=== PATIENT | female | born 1975 | race Caucasian/White ===

== ENCOUNTER → 2019-04-15 | Outpatient (CLI) | payer MEDICARE, OTHER ==
[~2019-04-15] MED LIST: ASPIRIN EC81 M1 PO; AUGMENTIN 500-1 EACH PO; AUGMENTIN 875875 MG PO; CALCIUM 600 +1 EAC1 PO; CATAPRES0.2 MG PO; CLONIDINE HCL0.3 M3 PO; CLONIDINE0.1; COUMADIN 10MG T10 M1 PO; COUMADIN 1MG TAB1 M1 PO; ENOXAPARIN40 MG/0.1 SUBQ; FISH OIL 1,001000 M2; FISH OIL 1,001000 M2 PO; HYDROCODONE-AP1 EAC6 PO; HYZAAR 100-251 EACH PO; IRON325 PO; LASIX 40 MG TAB40 M2 PO; LIPITOR20 MG PO; LIPITOR80 MG PO; MACROBID 100 M100 M1 PO; MINOCIN100 MG PO; NEPHROCAPS SOFT1 CAP PO; NORCO 5-325 TA1 EACH PO; PROTONIX40 M1 PO; RENVELA800 MG PO; SERTRALINE HCL50 MG PO; VITAMIN D1000 UNI1 PO; ZOFRAN ODT4 MG PO
== END ==
LOC: M.ULTRA 13:00
DX: M79.89 Other specified soft tissue disorders (principal)

== ENCOUNTER 2019-07-11 12:01 | Inpatient (IN) | payer MEDICARE, OTHER ==
[~2019-07-11] VITALS: Ht 172.7 cm; Wt 144.4 kg
--- NOTE | ~2019-07-11 | PROC ---
[facility] [address] [place] [address] PROCEDURE REPORT Name: ALEJANDRO MORRIS Room: [address] IN ..#: [id number] Admission: 07/11/19 Attend Phys: El Alan MD Discharge: 07/16/19 Date of : 73 Report #: [id number] THIS REPORT FOR: //name// For GI report, please see the Provation report in Perceptive 7 content. By: 1455Medical Records Staff MARIN /CHERELLE
[~2019-07-11 12:01] MED LIST changes: -FISH OIL 1,001000 M2
[2019-07-11 12:13] VITALS: BP 123/88
[2019-07-11] MEDS ORDERED: BUPROPION XL300 MG PO (12:16)
[2019-07-11] MEDS ORDERED: COLACE100 MG PO (12:16)
[2019-07-11] MEDS ORDERED: COZAAR 25 MG TA25 M2 PO (12:17)
[2019-07-11] MEDS ORDERED: PROCARDIA XL90 MG PO (12:17)
[2019-07-11] MEDS ORDERED: KRISTALOSE20 GM PO (12:17)
[2019-07-11 12:35] LABS: ABSOLUTE EOSINOPHILS 0.2 thou/uL (0.0-0.7); ABSOLUTE LYMPHOCYTES 0.9 thou/uL (0.8-5.3); ABSOLUTE MONOCYTES 0.7 thou/uL (0.0-1.2); ABSOLUTE NEUTROPHILS 9.5 thou/uL (1.6-8.1); BASOPHILS 0.3 %; EOSINOPHILS 2.1 %; HEMATOCRIT 35.8 % (37.0-47.0); HEMOGLOBIN 11.9 gm/dL (12.0-15.0); LYMPHOCYTES 8.1 %; MCHC 33.3 g/dL (28.0-37.0); MCV 99.1 fL (80.0-100.0); MONOCYTES 5.9 %; MPV 9.5 fl. (7.2-11.1); NUCLEATED RBCS 0 /100WBC; PLATELET COUNT* 256 thou/uL (150-400); POLYS 83.6 %; RBC 3.61 mil/uL (4.20-5.00); RDW-CV 15.9 % (10.5-14.5); WBC 11.4 thou/uL (4.0-11.0)
[2019-07-11 12:43] LABS: CALCIUM 9.2 mg/dL (8.5-10.1); CREATININE 10.6 mg/dL (0.6-1.3)
[2019-07-11 12:51] LABS: ALBUMIN 2.9 g/dL (3.4-5.0); TOTAL BILIRUBIN 0.3 mg/dL (<0.1-1.0); TOTAL PROTEIN 7.9 g/dL (6.4-8.2)
[2019-07-11 12:59] LABS: POTASSIUM 2.9 mmol/L (3.5-5.1)
[2019-07-11 13:13] LABS: PROTIME > 210.1 Seconds (9.20-11.50)
[2019-07-11 13:15] LABS: INR > 18.0
[2019-07-11 15:15] VITALS: BP 128/90
--- NOTE | 2019-07-11 15:45 | NUR ---
PATIENT TO UNIT VIA GURNEY AND ED STAFF. BEDSIDE REPORT GIVEN. A&OX4, ABLE TO EXPRESS NEEDS TO STAFF. FINANCIAL SERVICES OFFICER IN PLACE, SR BBB. O2 SATS >92%, VS WNL. ORIENTED PATIENT TO ROOM. UP AD CASEY TO BATHROOM WITH STEADY GAIT. CALL LIGHT WITHIN REACH.
[2019-07-11 15:57] VITALS: BP 121/73
--- NOTE | 2019-07-11 18:44 | NUR ---
DIE CAST TECHNICIAN HERE TO SET UP PERITONEAL DIALYSIS. REPORT GIVEN. PATIENT AWARE THAT DIE CAST TECHNICIAN TO ASSESS & SET-UP IN ROOM DIALYSIS. PATIENT'S BROUGHT THUMB DRIVE TO COLLECT DATA FROM DIALYSIS SESSION.
[2019-07-11 18:52] LABS: PROTIME > 210.1 Seconds (9.20-11.50)
[2019-07-11 18:53] LABS: INR > 18.0
[2019-07-11 19:35] VITALS: BP 122/76
[2019-07-12 00:44] VITALS: BP 136/86
--- NOTE | 2019-07-12 03:42 | NUR ---
ASSUMED CARE OF PT AT 1900. PT IS ALERT AND ORIENTED. VSS. PERRLA. NO COMPLAINTS OF PAIN. PT IS DOING PERITONEAL DIALYSIS. PT IS IN SINUS RYTHM ON THE TELEMETRY. PT IS SLEEPING QUIETLY IN BED. RESPIRATIONS ARE EVEN AND NONLABORED. WILL CONTINUE TO MONITOR PT.
[2019-07-12 03:56] VITALS: BP 135/75
[2019-07-12 04:28] LABS: ABSOLUTE BASOPHILS 0.1 thou/uL (0.0-0.2); ABSOLUTE EOSINOPHILS 0.3 thou/uL (0.0-0.7); ABSOLUTE LYMPHOCYTES 1.4 thou/uL (0.8-5.3); ABSOLUTE MONOCYTES 0.6 thou/uL (0.0-1.2); BASOPHILS 0.6 %; EOSINOPHILS 3.4 %; HEMATOCRIT 32.8 % (37.0-47.0); HEMOGLOBIN 10.8 gm/dL (12.0-15.0); MCH 32.9 pg (26.0-34.0); MCV 99.8 fL (80.0-100.0); MONOCYTES 6.3 %; MPV 9.6 fl. (7.2-11.1); NUCLEATED RBCS 0 /100WBC; PLATELET COUNT* 238 thou/uL (150-400); POLYS 74.7 %; RBC 3.28 mil/uL (4.20-5.00); RDW-CV 15.9 % (10.5-14.5); WBC 9.4 thou/uL (4.0-11.0)
[2019-07-12 04:39] LABS: CALCIUM 8.4 mg/dL (8.5-10.1); CREATININE 10.3 mg/dL (0.6-1.3)
[2019-07-12 04:42] LABS: PROTIME 143.4 Seconds (9.20-11.50)
[2019-07-12 05:12] LABS: INR 15.5
[2019-07-12 08:01] VITALS: BP 122/78
--- NOTE | 2019-07-12 09:12 | NUR ---
ASSUMED CARE OF PT THIS AM AROUND 0715- CULTURE MEDIA LABORATORY ASSISTANT IN PLACE ORDERED, TRACING SR- UPON ASSESSMENT PT NOTED TO BE RESTING IN BED, WATCHING TV- PT A&O X4- CONTINENT OF BOWEL AND BLADDER- UP AD-CASEY IN ROOM, STEADY GAIT NOTED- LCTA, RESP EVEN AND UNLABORED- VSS, O2 SAT 98% ON RA- ABD SOFT/ROUND/NON-TENDER, BS X4 QUADS- LAST BM REPORTED 07/11/19- PT REPORTED TO HAVE COMPLETED PERITONEAL DIALYSIS ON PRIOR SHIFT ORDERED- IV NOTED TO LEFT FA INTACT ANS SL- HERE TO ASSESS THIS AM WITH ORDERED FOR 40MEQ K+ X1, ADN GIVEN THIS AM PRESCRIBED- PT REPORTS DIARRHEA ON PRIOR SHIFT HAS SUBSIDED AT THIS TIME-RUE NOTED WITH OLD FISTULA, NO BRUIT/THRILL NOTED- GOOD PO INTAKE NOTED THIS AM WITH BREAKFAST- DENIES ANY C/O PAIN/DISCOMFORT AT THIS TIME- MAKES NEEDS KNOWN- ALL NEEDS MET AT THIS TIME-WCTM
[2019-07-12 12:12] VITALS: BP 108/55
[2019-07-12 12:45] LABS: PROTIME 69.1 Seconds (9.20-11.50)
[2019-07-12 12:49] LABS: INR 7.2
[2019-07-12 14:04] LABS: CALCIUM 9.1 mg/dL (8.5-10.1); CREATININE 10.9 mg/dL (0.6-1.3); MAGNESIUM 1.9 mg/dL (1.8-2.4)
--- NOTE | 2019-07-12 14:23 | EKG ---
[place] [address] ELECTROCARDIOGRAM REPORT Name: ALEJANDRO MORRIS Room: [address] ADM IN [facility].#: [id number] Admission: 07/11/19 Attend Phys: El Alan MD Discharge: Date of : 73 Report #: [id number] THIS REPORT FOR: //name// [facility] ED Test Date: 2019-07-11 Test Time: 13:19:20 Pat Name: ALEJANDRO MORRIS Department: Room: [facility] Gender: F Livestock Sales Representative: EDD : 1975 Requested By: Breonna Vázquez Order Number: [id number] MD: Aj Olivas Measurements Intervals [place] Rate: 89 P: 59 OH: 222 QRS: 77 QRSD: 119 T: -54 QT: 393 QTc: 479 Interpretive Statements Sinus rhythm Prolonged OH interval Consider left atrial enlargement Nonspecific intraventricular conduction delay Nonspecific T abnormalities, diffuse leads Baseline wander in lead(s) I,II,aVR,aVL,V5 Compared to ECG 04/07/2017 07:43:36 Intraventricular conduction delay now present T-wave abnormality now present Electronically Signed On 07-12-2019 14:23:16 CDT by Aj Olivas [email or web address] <ELECTRONICALLY SIGNED> By: Lakesha Olivas MD, FACC 07/12/19 1423 18 1319 Lakesha Olivas MD, [facility] /EPI
--- NOTE | 2019-07-12 16:01 | NUR ---
PT CURRENTLY RESTING IN BED, AT SIDE VISITING- AUTOMOTIVE METALSMITH IN PLACE ORDERED, TRACING SR- IV TO LEFT FA INTACT AND SL- INR NOTED TO BE DOWN TO 7.2 THIS SHIFT, INR CHECKS Q [address]- ONE TIME K+ ORDER 40MEQ ORDERD THIS AM AND GIVEN PRESCRIBED- K+ CONTINUES TO BE 3.0- GOOD PO INTAKE NOTED THIS SHIFT WITH MEALS- PT MAKES NEEDS KNOWN- ALL NEEDS MET AT THIS TIME-WCTM
[2019-07-12 16:33] VITALS: BP 110/60
[2019-07-12 19:25] VITALS: BP 126/77
[2019-07-12 20:52] LABS: PROTIME 36.6 Seconds (9.20-11.50)
[2019-07-12 20:53] LABS: INR 3.7
--- NOTE | 2019-07-12 23:43 | NUR ---
ASSUMED CARE OF PT AT 1900. PT IS ALERT AND ORIENTED. VSS. PERRLA. NO COMPLAINTS OF PAIN. STEADY GAIT. PT IS CURRENTLY ON PERITANEAL DIALYSIS. PT IS IN SINUS RYTHM ON THE TELEMETRY. PT IS RESTING COMFORTABLY IN BED. RESPIRATIONS ARE EVEN AND NONLABORED. WILL CONTINUE TO MONITOR PT.
[2019-07-13] VITALS: BP 146/80
[2019-07-13 05:21] LABS: PROTIME 21.8 Seconds (9.20-11.50)
[2019-07-13 05:22] LABS: INR 2.2
[2019-07-13 05:24] LABS: CREATININE 11.1 mg/dL (0.6-1.3); MAGNESIUM 1.8 mg/dL (1.8-2.4); POTASSIUM 3.2 mmol/L (3.5-5.1)
[2019-07-13 07:25] VITALS: BP 106/67
--- NOTE | 2019-07-13 08:14 | CON ---
[address] [address] CONSULTATION Name: ALEJANDRO MORRIS Room: [address] IN [facility].#: [id number] Admission: 07/11/19 Attend Phys: El Alan MD Discharge: Date of : 73 Report #: [id number] THIS REPORT FOR: //name// CC: [facility] HISTORY: The patient is a 44-year-old female patient with a history of antiphospholipid syndrome, end-stage renal disease, on peritoneal dialysis under the care of Dr. Watters. She was admitted yesterday with significant coagulopathy and INR of 18. She reports having stomach flu with her diarrhea, nausea, and poor intake over the past many days. She was also found to be hypokalemic, which has been supplemented. She still reports having diarrhea overnight, though nothing significant has been started by the nursing staff. Apparently, the patient has not been talking to the nursing staff about those overnight. No fevers, no chills. Nausea is better. No abdominal pain. She did have peritoneal dialysis overnight and did fairly well. PAST MEDICAL HISTORY: 1. End-stage renal disease, on peritoneal dialysis. 2. History of fistula. 3. Antiphospholipid syndrome. 4. Longstanding history of hypokalemia. 5. On anticoagulants, admitted with hypercoagulable state. 6. Paresthesias. 7. History of thrombocytopenia. 8. Hypertension. 9. History of UTIs. HOME MEDICATIONS: Aspirin, Lipitor, sevelamer, warfarin, bupropion, docusate, lactulose for constipation, losartan, nifedipine, clonidine, furosemide, cholecalciferol, sertraline and fish oil. PERSONAL, SOCIAL, AND FAMILY HISTORY: Reviewed. No smoking reported presently. Occasional alcohol intake. No family history of ESRD. REVIEW OF SYSTEMS: No fevers, no chills, no chest pain. Diarrhea as mentioned above. Nausea occasionally. No fevers, no abdominal pain, no visible blood loss from any source. PHYSICAL EXAMINATION: VITAL SIGNS: She appears comfortable. Blood pressure 122/78, pulse rate of 80, temperature of 36.8. LUNGS: Diminished, but clear. GENERAL: She is awake. She is alert, answers all questions appropriately. HEART: Regular S1, S2. ABDOMEN: Obese but soft, nontender. PD catheter [place] [address] CONSULTATION Name: ALEJANDRO MORRIS Bo Room: [address]#: [id number] Admission: 07/11/19 Attend Phys: El Alan MD Discharge: Date of : 73 Report #: [id number] No significant edema in lower extremities. NEUROLOGIC: Grossly stable. LABORATORY DATA: Reviewed. White count is 9.4, hemoglobin is 10.8. Sodium 137, potassium is 3, chloride 97, bicarbonate is 25, BUN 15 and creatinine 10.3, calcium 8.4, albumin 2.9. INR this morning is 15.5. ASSESSMENT: 1. End-stage renal disease. 2. On peritoneal dialysis. 3. Supratherapeutic INR. 4. Antiphospholipid syndrome. 5. History of hypertension. 6. Obesity. 7. Anemia. 8. Hypokalemia on this admission. PLAN: 1. Supratherapeutic INR being addressed by the primary team. The patient is getting vitamin K, warfarin on hold. 2. End-stage renal disease. The patient did get her PD treatment last night. She uses 13 liters of 2.5% bags on a regular basis. 3. Hypokalemia. Give 40 more mEq of potassium chloride this morning. Repeat labs this afternoon. 4. Please check magnesium levels also. 5. Ongoing electrolyte losses from diarrhea. Send stool studies for C. diff and other enteric pathogens. 6. Anemia. Follow labs closely. No indications for Mircera or Epogen yet. 7. Supratherapeutic INR. Management per primary team. Thank you for the consultation. <ELECTRONICALLY SIGNED> By: Yasmeen Link MD 07/13/19 0814 0808 [id number] Link MD /nt
--- NOTE | 2019-07-13 08:33 | NUR ---
ASSUMED CARE OF PT THIS AM AROUND 07- CIRCULATOR IN PLACE ORDERED, TRACING SR WITH 1ST DEGREE- UPON ASSESSMENT PT NOTED TO BE RESTING IN BED, EYES CLOSED, AT SIDE- PT A&O X4- CONTINENT OF BOWEL AND BLADDER- UP AD-CASEY IN ROOM, STEADY GAIT NOTED- LCTA, RESP EVEN AND UN-LABORED- VSS, O2 SAT 93% ON RA- ABD SOFT/ROUND/NON-TENDER, BS X4 QUADS- BM REPORTED ON PRIOR SHIFT- IV NOTED TO LEFT FA INTACT AND SL- PERITONEAL DIALYSIS COMPLETED THIS AM INDICATED, PT SELF DISCONNECTED- K+ NOTED AT 3.2 WITH ORDERS NOTED THIS AM TO REPLACE X2 40 MEQ- PT DENIES ANY C/O PAIN/DISCOMFORT AT THIS TIME- CALL LIGHT AND PERSONAL BELONGINGS WITH IN REACH- PT MAKES NEEDS KNOWN- ALL NEEDS MET AT THIS TIME-WCTM
--- NOTE | 2019-07-13 09:10 | CON ---
[address] [address] CONSULTATION Name: ALEJANDRO MORRIS Room: [address] IN ..#: [id number] Admission: 07/11/19 Attend Phys: El Alan MD Discharge: Date of : 73 Report #: [id number] THIS REPORT FOR: //name// CC: El Gay DATE OF SERVICE: 07/12/2019 REASON FOR CONSULTATION: Supratherapeutic INR. HISTORY OF PRESENT ILLNESS: A 44-year-old female who has been chronically on anticoagulation with Coumadin per her records due to antiphospholipid syndrome. The patient stated that her INR usually runs between 2.5 and 3. In the last week, she reported symptoms suggestive of gastroenteritis with nausea, vomiting, and diarrhea. She had a significantly decreased appetite. She was seen at her primary care physician's office and INR was not recordable. She denies any headaches, blurry vision, focal numbness, or tingling sensation. She denies any epistaxis or gum bleed. She denies any hematuria or black stool. REVIEW OF SYSTEMS: All systems reviewed. It was negative except the above. PAST MEDICAL HISTORY: Per the records, antiphospholipid antibody syndrome; end-stage renal disease, on dialysis; dyslipidemia; hypertension; prior CVA. PAST SURGICAL HISTORY: Fistula placement, hysterectomy, and left wrist surgery. MEDICATIONS: Per admission list. SOCIAL HISTORY: She drinks alcohol occasionally. Never smoker. No drug abuse. ALLERGIES: No known allergies. PHYSICAL EXAMINATION: VITAL SIGNS: Today, temperature 36.8, pulse 83, respirations 18, blood pressure is 108/55, and SpO2 was 97% on room air. GENERAL: The patient was lying in bed. She was not in acute distress. LUNGS: Clear to auscultations bilaterally. HEART: Regular rate and rhythm. S1, S2 within normal limits. ABDOMEN: Soft, nontender, nondistended, bowel sounds positive. No evidence of bruises or ecchymosis. LABORATORY DATA: Today, WBC is 9.4, hemoglobin 10.8, platelets 238. PT dropped to 143 after 10 mg of vitamin K. INR was 15.5, repeated one [place] [address] CONSULTATION Name: ALEJANDRO MORRIS Room: [address]#: [id number] Admission: 07/11/19 Attend Phys: El Alan MD Discharge: Date of : 73 Report #: [id number] ASSESSMENT AND PLAN: A 44-year-old female who has been evaluated because of coagulopathy with a supratherapeutic INR. At this point, the patient does not have any active bleeding. She was given vitamin K 10 mg. Her INR has been trending down. We will repeat a stat INR every 8 hours to decide whether the patient is going to need further FFP or PCC. The patient does not have any symptoms or signs suggestive of active bleeding. <ELECTRONICALLY SIGNED> By: Timoteo Calixto MD 07/13/19 0910 1227 [id number] Calixto MD /nt
[2019-07-13 09:15] VITALS: BP 106/67
[2019-07-13 10:38] LABS: ABSOLUTE EOSINOPHILS 0.3 thou/uL (0.0-0.7); ABSOLUTE MONOCYTES 0.6 thou/uL (0.0-1.2); ABSOLUTE NEUTROPHILS 7.1 thou/uL (1.6-8.1); BASOPHILS 0.5 %; EOSINOPHILS 3.2 %; HEMATOCRIT 32.3 % (37.0-47.0); HEMOGLOBIN 10.7 gm/dL (12.0-15.0); LYMPHOCYTES 11.4 %; MCH 33.4 pg (26.0-34.0); MCHC 33.3 g/dL (28.0-37.0); MCV 100.4 fL (80.0-100.0); MONOCYTES 6.4 %; MPV 9.9 fl. (7.2-11.1); NUCLEATED RBCS 0 /100WBC; PLATELET COUNT* 226 thou/uL (150-400); POLYS 78.5 %; RBC 3.22 mil/uL (4.20-5.00); RDW-CV 16.1 % (10.5-14.5)
[2019-07-13 12:52] VITALS: BP 119/70
[2019-07-13 12:53] LABS: INR 1.9; PROTIME 18.9 Seconds (9.20-11.50)
--- NOTE | 2019-07-13 17:02 | NUR ---
PT CURRENTLY RESTING IN BED, AT SIDE- PROGRAM CLINICIAN IN PLACE ORDERED, TRACING SR WITH 1ST DEGREE- IV TO LEFT FA INTACT AND SL- D/C PLACED ON HOLD R/T SIGNIFICANT DARK AND BRIGHT RIGHT BLOOD NOTED IN [facility] EARLY AFTERNOON- NOTIFIED WITH ORDERS OBTAINED FOR GI CONSULT, HH, HOLD COUMADIN, OCCULT BLOOD, NPO- GI HERE TO ASSESS WITH PLANS FOR COLON/EGD ON SUNDAY WITH PLANNED 2 DAY PREP-ORDERED SENNA GIVEN THIS SHIFT-K+ REPLACED X2 40MEQ ORDERED THIS SHIFT- OCCULT STOOL COLLECTED AND NOTED TO BE POSITIVE-CALL LIGHT AND PERSONAL BELONGINGS WITH IN REACH- PT MAKES NEEDS KNOWN- ALL NEEDS MET AT THIS TIME-WCTM
[2019-07-13 17:42] VITALS: BP 123/78
[2019-07-13 20:55] VITALS: BP 145/80
[2019-07-14] VITALS: BP 110/64
[2019-07-14 04:00] VITALS: BP 112/68
[2019-07-14 04:34] LABS: ABSOLUTE BASOPHILS 0.1 thou/uL (0.0-0.2); ABSOLUTE EOSINOPHILS 0.3 thou/uL (0.0-0.7); ABSOLUTE LYMPHOCYTES 1.4 thou/uL (0.8-5.3); ABSOLUTE MONOCYTES 0.6 thou/uL (0.0-1.2); ABSOLUTE NEUTROPHILS 5.4 thou/uL (1.6-8.1); BASOPHILS 0.8 %; EOSINOPHILS 3.7 %; HEMATOCRIT 31.9 % (37.0-47.0); HEMOGLOBIN 10.5 gm/dL (12.0-15.0); LYMPHOCYTES 18.1 %; MCH 32.5 pg (26.0-34.0); MCHC 32.7 g/dL (28.0-37.0); MCV 99.4 fL (80.0-100.0); MONOCYTES 8.2 %; MPV 9.2 fl. (7.2-11.1); NUCLEATED RBCS 0 /100WBC; PLATELET COUNT* 192 thou/uL (150-400); POLYS 69.2 %; RBC 3.21 mil/uL (4.20-5.00); RDW-CV 15.7 % (10.5-14.5); WBC 7.8 thou/uL (4.0-11.0)
[2019-07-14 04:44] LABS: CALCIUM 8.9 mg/dL (8.5-10.1); CREATININE 10.7 mg/dL (0.6-1.3); POTASSIUM 3.2 mmol/L (3.5-5.1)
[2019-07-14 04:46] LABS: INR 1.6
--- NOTE | 2019-07-14 06:45 | NUR ---
PT IS ABLE TO COMMUNICATE HER NEEDS TO STAFF EFFECTIVELY. SHE HAS DENIED THE NEED FOR PAIN MEDICATION UP TO THIS TIME. SHE HAS BEEN ON BOWEL PREP FOR A DAY AND WILL BE CONTINUING IT TODAY; EGD/COLONOSCOPY TENTATIVELY SCHEDULED FOR SUNDAY WITH GI. PERITONEAL DIALYSIS APPEARS PATENT; PT KNOWS HOW TO MANAGE PROPERLY.
[2019-07-14 08:30] VITALS: BP 147/82
[2019-07-14 08:38] LABS: INR 1.6
[2019-07-14 11:30] VITALS: BP 125/69
--- NOTE | 2019-07-14 12:16 | NUR ---
Pt sound asleep when CM went to assess, will f/u later
--- NOTE | 2019-07-14 13:54 | NUR ---
Nutrition: Pt admitted with melena, hematochezia. On bowel prep for colonoscopy tomorrow. ESRD on PD, HTN, CVA. BG 154, albumin 2.9. Wt stable. Will follow after scope results, 07/16/19.
--- NOTE | 2019-07-14 15:16 | NUR ---
Pt is A&O. Resides at home with her . Independent. Pt sleeps with a cpap, no other DME. Hx of in 2011, but does not recall the name of the agency. Hx of SNF in [place], [place]. Pt does peritoneal dialysis at home. Goal is home at [place], no needs anticipated. Following.
[2019-07-14 16:17] VITALS: BP 120/88
--- NOTE | 2019-07-14 16:26 | NUR ---
PATIENT UP AD CASEY, TRACING SR WITH PVC'S ON SUPPLIER QUALITY MANAGER. NO COMPLAINTS OF PAIN. IV REMAINS SL. PATIENT TACHY FROM 100'S-140'S THIS AFTERNOON AFTER PREP STARTED AND AMBULATING TO BATHROOM, DR. AUGUST WAS MADE AWARE AND NO NEW ORDERS RECEIVED. GOLYTLEY AND DUCOLAX GIVEN ORDERED. PATIENT REMAINS ON CLEAR LIQUID DIET.
[2019-07-14 20:15] VITALS: BP 127/88
--- NOTE | 2019-07-14 23:15 | NUR ---
PT LOST IV ACCESS WHILE ON DAY SHIFT...DAMAGE ASSESSOR ATTEMPTED TO PLACE A NEW IV THIS EVENING WITHOUT SUCCESS. CASTING MOLDER WILL ATTEMPT TO GET ACCESS, IF THEY HAVE TIME. PT HAS EGD/COLONOSCOPY TOMORROW AND WILL NEED AN IV FOR THAT PROCEDURE.
[2019-07-15 00:48] VITALS: BP 104/58
[2019-07-15 04:00] VITALS: BP 109/59
--- NOTE | 2019-07-15 05:06 | NUR ---
PT IS ABLE TO COMMUNICATE HER NEEDS TO STAFF EFFECTIVELY. CURRENT PAIN MEDICATION REGIMEN HAS BEEN ADEQUATE FOR CONTROLLING HER PAIN UP TO THIS TIME. SHE HAS BEEN ON A 2-DAY BOWEL PREP AND IS TENTATIVELY SCHEDULED TO HAVE A EGD/COLONOSCOPY LATER THIS MORNING; SHE CONTINUES TO HAVE BLOOD IN HER STOOL. PT HAS CONTINUED TO SUCCESSFULLY MANAGE HER PERITONEAL DIALYSIS. SHE HAS BEEN NPO SINCE MIDNIGHT EXCEPT FOR A FEW DRINKS OF BOWEL PREP FLUID AND SOME PILLS.
[2019-07-15 05:09] LABS: ABSOLUTE EOSINOPHILS 0.2 thou/uL (0.0-0.7); ABSOLUTE LYMPHOCYTES 1.3 thou/uL (0.8-5.3); ABSOLUTE MONOCYTES 0.7 thou/uL (0.0-1.2); ABSOLUTE NEUTROPHILS 6.5 thou/uL (1.6-8.1); BASOPHILS 0.5 %; EOSINOPHILS 2.6 %; HEMATOCRIT 27.7 % (37.0-47.0); HEMOGLOBIN 9.4 gm/dL (12.0-15.0); LYMPHOCYTES 14.5 %; MCH 33.7 pg (26.0-34.0); MCHC 33.9 g/dL (28.0-37.0); MCV 99.3 fL (80.0-100.0); MONOCYTES 7.9 %; MPV 9.2 fl. (7.2-11.1); NUCLEATED RBCS 0 /100WBC; PLATELET COUNT* 138 thou/uL (150-400); POLYS 74.5 %; RBC 2.79 mil/uL (4.20-5.00); RDW-CV 15.5 % (10.5-14.5); WBC 8.7 thou/uL (4.0-11.0)
[2019-07-15 05:11] LABS: INR 1.5; PROTIME 15.1 Seconds (9.20-11.50)
[2019-07-15 05:22] LABS: ALBUMIN 2.2 g/dL (3.4-5.0); CALCIUM 8.5 mg/dL (8.5-10.1); CREATININE 10.2 mg/dL (0.6-1.3); POTASSIUM 3.5 mmol/L (3.5-5.1); TOTAL BILIRUBIN 0.4 mg/dL (<0.1-1.0); TOTAL PROTEIN 6.2 g/dL (6.4-8.2)
[2019-07-15 06:29] LABS: ESR (SEDRATE) 132 mm/hr (0-20)
[2019-07-15 07:54] LABS: INR 1.5; PROTIME 15.1 Seconds (9.20-11.50)
[2019-07-15 08:00] VITALS: BP 105/72
--- NOTE | 2019-07-15 09:00 | NUR ---
PD TURNED OFF AND DRAINED. PT TO PRE-OP
--- NOTE | 2019-07-15 10:15 | CON ---
[address] [address] CONSULTATION Name: ALEXANDRAALEJANDRO Bo Room: [address] IN .R.#: [id number] Admission: 07/11/19 Attend Phys: El Alan MD Discharge: Date of : 73 Report #: [id number] THIS REPORT FOR: //name// CC: El Alan DATE OF SERVICE: 07/13/2019 REASON FOR CONSULTATION: Rectal bleeding. IMPRESSION: 1. Overt hematochezia with associated history of dark stools, suggestive of melena prior to that ? evaluate for upper and lower GI tract source for the same. 2. End-stage renal disease, requiring peritoneal dialysis (hemodialysis did not work due to recurrent clots within her AV fistula, with multiple surgeries for the same). 3. History of previous stroke with history of antiphospholipid syndrome, requiring chronic anticoagulation. 4. Chronic anemia with the patient getting iron infusions under the direction of Dr. Watters, with the last one being done in July of this year. 5. Chronic constipation, requiring chronic laxatives to help with the same. RECOMMENDATIONS: 1. Since the patient has both preexisting melena and now hematochezia, but needs to stay on anticoagulation for antiphospholipid syndrome, we will proceed with a 2-day bowel preparation so that I can proceed with both upper and lower endoscopy to be done on Sunday morning, 07/15. I do not think that she will be cleared out well enough within one day to have a prep due to her issues with constipation and I only want to do this once. 2. We will hold all the anticoagulants for now and hold off on any further vitamin K or fresh frozen plasma, unless she has any hemodynamically significant GI bleeding requiring transfusions. 3. I have discussed the plans with the patient as well as her and they are agreeable to the same. HISTORY OF PRESENT ILLNESS: The patient is a pleasant 44-year-old white female with a history of antiphospholipid syndrome, for which she is on chronic anticoagulation for the same secondary to previous strokes and blood clots, who was admitted to the hospital because her INR was above 18. I usually like her INR to be between 2.5 and 3. She had been having some problems with nausea, vomiting and diarrhea and just not feeling well. She denied any history of any black stools or tarry stools upon her admission, but when talking to her now, [place] [address] CONSULTATION Name: ALEJANDRO MORRIS Room: [address] IN [facility]#: [id number] Admission: 07/11/19 Attend Phys: El Alan MD Discharge: Date of : 73 Report #: [id number] she states she was having black stools prior to coming to the hospital. She denies any complaints of dysphagia, odynophagia or postprandial pain or any problems normally with her upper GI tract. She has no history of any ulcer problems or any other issues. She does have a tendency towards chronic constipation and has been told by Dr. Watters to make sure this does not get worse because of the fact that she has to undergo peritoneal dialysis. She tried hemodialysis, but her AV fistula kept clotting off and required multiple surgeries. She is fine with doing peritoneal dialysis and had been doing so for the last couple of years. She denies any family history of any colon polyps or colon cancer. She has never undergone previous studies of her upper or lower GI tract in the past. She was getting ready to be discharged and then started passing blood and blood clots. She now is taken to the hospital for further evaluation and treatment. ALLERGIES: None. MEDICATIONS AT HOME: Include aspirin, Lipitor, sevelamer, warfarin, bupropion, docusate, lactulose, losartan, nifedipine, clonidine, furosemide, vitamin D, sertraline and fish oil. PAST MEDICAL AND SURGICAL HISTORY: Remarkable for underlying hypertension, antiphospholipid syndrome with previous stroke and blood clotting, anxiety and depression. She has vitamin D deficiency as well. The etiology of her kidney disease is unclear as she was never able to safely undergo a biopsy for fear that she would have stroke being off anticoagulation. It was going to change her care and for this reason, she is just on dialysis. SOCIAL HISTORY: The patient does not smoke, drinks alcohol on a weekly basis. FAMILY HISTORY: Negative. PHYSICAL EXAMINATION: GENERAL: Revealed a 44-year-old white female who is awake and alert. CARDIOPULMONARY EXAMINATION: Revealed a regular rate and rhythm. LUNGS: Clear. ABDOMEN: Soft, not tender. No rebound or guarding noted. LABORATORY DATA: Her laboratory tests from 07/13 revealed a white count of 9.0, hemoglobin 10.7, platelet count 226,000, MCV is 100.4 and RDW 16.1. Differential is normal. Her sodium is 135, potassium 3.2, chloride 96, bicarbonate is 23, her BUN is 56, creatinine of 11.1 and her GFR is 4. Liver tests performed on 07/11 revealed a bilirubin of 0.3, alkaline phosphatase 100, AST 12 and ALT 18. Albumin is 2.9. The patient underwent a full CT scan of the abdomen and pelvis back in 03/2017, which I reviewed, which revealed dialysis catheter was present within the belly [facility] [address] [place] [address] CONSULTATION Name: ROMELAnnaALEJANDRO Bo Room: [address] IN [facility]#: [id number] Admission: 07/11/19 Attend Phys: El Alan MD Discharge: Date of : 73 Report #: [id number] cavity as well as some nonspecific patchy haziness in the omental fat, but nothing that was a small fat-containing periumbilical hernia. DISCUSSION: At the present time, the patient appears to be an adequate candidate to undergo endoscopic evaluation. We will proceed with 2-day bowel preparation and endoscopic evaluation of her upper and lower GI tract in 2 days' time. I have discussed the plans with the patient as well and she is agreeable to the same. ADDENDUM: I previously noted in my dictation that the patient has not undergone any previous studies of her upper and lower GI tract the past, but this is not true. She underwent both upper and lower endoscopy back in 11/[address] Faustino Collazo for evaluation of iron-deficiency anemia and at which time, she underwent both upper and lower endoscopy, which were unrevealing. Biopsies from the small bowel were negative for celiac disease. This was the last time she had any endoscopic studies. <ELECTRONICALLY SIGNED> By: Jessee Bennett DO 07/15/19 1015 1052 1327Jessee Bennett DO /jero
[2019-07-15 11:00] VITALS: BP 117/72
[2019-07-15 16:00] VITALS: BP 115/49
--- NOTE | 2019-07-15 18:07 | NUR ---
PT UP IN ROOM THROUGHTOUT SHIFT. EGD/COLONSCOPY THIS AM. TOLERATING PO WELL. NO SIGNS OF BLEEDING. NSR ON MONITOR
[2019-07-15 20:00] VITALS: BP 96/55
[2019-07-16] VITALS: BP 104/59
[2019-07-16 04:00] VITALS: BP 125/65
[2019-07-16 05:30] LABS: INR 1.4; PROTIME 14.4 Seconds (9.20-11.50)
--- NOTE | 2019-07-16 06:18 | NUR ---
pt has rested comfortably t/o night without c/o pain,nausea or bleeding. pt progressing towards goals. meds administered via emar.call light within reach
[2019-07-16 08:00] VITALS: BP 152/92
[2019-07-16 09:25] LABS: ABSOLUTE BASOPHILS 0.1 thou/uL (0.0-0.2); ABSOLUTE EOSINOPHILS 0.3 thou/uL (0.0-0.7); ABSOLUTE LYMPHOCYTES 1.1 thou/uL (0.8-5.3); ABSOLUTE MONOCYTES 0.7 thou/uL (0.0-1.2); ABSOLUTE NEUTROPHILS 5.8 thou/uL (1.6-8.1); BASOPHILS 1.2 %; EOSINOPHILS 3.3 %; HEMATOCRIT 28.1 % (37.0-47.0); HEMOGLOBIN 9.5 gm/dL (12.0-15.0); LYMPHOCYTES 14.4 %; MCH 33.7 pg (26.0-34.0); MCHC 33.9 g/dL (28.0-37.0); MCV 99.4 fL (80.0-100.0); MONOCYTES 8.8 %; MPV 9.9 fl. (7.2-11.1); NUCLEATED RBCS 0 /100WBC; PLATELET COUNT* 112 thou/uL (150-400); POLYS 72.3 %; RBC 2.83 mil/uL (4.20-5.00); RDW-CV 15.6 % (10.5-14.5); WBC 7.9 thou/uL (4.0-11.0)
[2019-07-16 09:30] LABS: CALCIUM 8.8 mg/dL (8.5-10.1); CREATININE 10.8 mg/dL (0.6-1.3); POTASSIUM 3.6 mmol/L (3.5-5.1)
--- NOTE | 2019-07-16 12:28 | NUR ---
AWAITING SURGERY EVAL THEN POSSIBLE DISCHARGE
[2019-07-16] MEDS ORDERED: ANUSOL-HC30 GM TOP (13:54)
[2019-07-16] MEDS ORDERED: LINZESS290 MCG PO (13:54)
[2019-07-16 14:17] VITALS: BP 106/67
--- NOTE | 2019-07-16 17:06 | PATH ---
[facility] [address] [place] [address] PATHOLOGY RPT PROCEDURE Name: CLARA MORRIS Room: [address] IN ..#: [id number] Admission: 07/11/19 Date of : 73 Discharge: Report #: [id number] Path Case #: [id number] [facility] Accession Number: [id number] . 01 Material submitted: . stomach - ANTRAL BIOPSY FOR EROSIVE GASTRITIS . 01 Clinical history: . None provided . 02 Diagnosis: Antral biopsy: - Moderate nonspecific chronic antral gastritis, negative for Helicobacter pylori organisms, granulomas and dysplasia. . (JESÚS:mml; 07/16/2019) [facility] 07/16/2019 1537 Local . 02 Comment: Special stain: H. pylori immuno. . (JESÚS:mml; 07/16/2019) . 02 Electronically signed: . Zi Shine MD, Pathologist NPI- [id number] . 01 Gross description: . Received in formalin labeled "Clara Morris, antral biopsy for erosive gastritis, rule out H. pylori," is a single segment of piña soft tissue measuring 0.3 cm in maximum dimension. The specimen is entirely submitted in cassette A1. (TSD; 07/15/2019) TOB/TOB 07/15/2019 2000 Local . 02 Pathologist provided ICD-10: K29.50 . 02 CPT . 599983, D54391 Specimen Comment: A courtesy copy of this report has been sent to Specimen Comment: [phone], , . Specimen Comment: Report sent to ,DR RODRIGUEZ / DR AUGUST Performed at: [address], [place] [id number] MD Faustino Earl MD Phone: [phone] Performed at: [address] [address] PATHOLOGY RPT PROCEDURE Name: CLARA MORRIS Room: [address]#: [id number] Admission: 07/11/19 Date of : 73 Discharge: Report #: [id number] Path Case #: [id number] [address] [id number] MD Zi Shine MD Phone: [phone]
== END 2019-07-16 16:50 | disposition home or self-care (01) | DRG 813 ==
LOC: M.ERS 12:01 → M.2W 13:20 → M.TBA-ER 13:20 → M.2W 15:29
PROVIDERS: Internal Medicine; Internal Medicine Gastroenterology; Internal Medicine Nephrology; Nurse Practitioner Family; ADMIT Internal Medicine
PROC: 3E1M39Z Irrigation of Peritoneal Cavity using Dialysate, Percutaneous Approach (ICD-10-PCS; principal; 2019-07-11)
PROC: 3E1M39Z Irrigation of Peritoneal Cavity using Dialysate, Percutaneous Approach (ICD-10-PCS; 2019-07-12)
PROC: 3E1M39Z Irrigation of Peritoneal Cavity using Dialysate, Percutaneous Approach (ICD-10-PCS; 2019-07-13)
PROC: 3E1M39Z Irrigation of Peritoneal Cavity using Dialysate, Percutaneous Approach (ICD-10-PCS; 2019-07-14)
PROC: 3E1M39Z Irrigation of Peritoneal Cavity using Dialysate, Percutaneous Approach (ICD-10-PCS; 2019-07-15)
PROC: 0DJD8ZZ Inspection of Lower Intestinal Tract, Via Natural or Artificial Opening Endoscopic (ICD-10-PCS; 2019-07-16)
PROC: 0DB78ZX Excision of Stomach, Pylorus, Via Natural or Artificial Opening Endoscopic, Diagnostic (ICD-10-PCS; 2019-07-16)
DX: D68.32 Hemorrhagic disorder due to extrinsic circulating anticoagulants (principal); K57.31 Diverticulosis of large intestine without perforation or abscess with bleeding; N18.6 End stage renal disease; D68.61 Antiphospholipid syndrome; I12.0 Hypertensive chronic kidney disease with stage 5 chronic kidney disease or end stage renal disease; Z68.42 Body mass index [BMI] 45.0-49.9, adult; T45.525A Adverse effect of antithrombotic drugs, initial encounter; D68.9 Coagulation defect, unspecified; K64.9 Unspecified hemorrhoids; E87.6 Hypokalemia; E66.9 Obesity, unspecified; D64.9 Anemia, unspecified; E78.5 Hyperlipidemia, unspecified; K59.09 Other constipation; K31.9 Disease of stomach and duodenum, unspecified; T45.515A Adverse effect of anticoagulants, initial encounter; Z99.2 Dependence on renal dialysis; Z86.73 Personal history of transient ischemic attack (TIA), and cerebral infarction without residual deficits; Z98.891 History of uterine scar from previous surgery; Z90.710 Acquired absence of both cervix and uterus; Z79.899 Other long term (current) drug therapy; Z79.82 Long term (current) use of aspirin; Z79.01 Long term (current) use of anticoagulants; Z82.49 Family history of ischemic heart disease and other diseases of the circulatory system; Y92.89 Other specified places as the place of occurrence of the external cause

== ENCOUNTER 2019-09-04 13:33 | Inpatient (IN) | payer MEDICARE, OTHER ==
[~2019-09-04] VITALS: Ht 172.7 cm; Wt 141.4 kg
[~2019-09-04 13:33] MED LIST changes: +ANUSOL-HC30 GM TOP; +BUPROPION XL300 MG PO; +COLACE100 MG PO; +COZAAR 25 MG TA25 M2 PO; +KRISTALOSE20 GM PO; +LINZESS290 MCG PO; +PROCARDIA XL90 MG PO
[2019-09-04 13:44] VITALS: BP 96/65
[2019-09-04 14:21] LABS: HEMATOCRIT 30.9 % (37.0-47.0); HEMOGLOBIN 10.4 gm/dL (12.0-15.0); MCH 32.9 pg (26.0-34.0); MCHC 33.5 g/dL (28.0-37.0); MCV 98.2 fL (80.0-100.0); NUCLEATED RBCS 0 /100WBC; PLATELET COUNT* 284 thou/uL (150-400); RBC 3.15 mil/uL (4.20-5.00); RDW-CV 15.1 % (10.5-14.5); WBC 17.9 thou/uL (4.0-11.0)
[2019-09-04 14:37] LABS: CALCIUM 9.1 mg/dL (8.5-10.1); CREATININE 11.4 mg/dL (0.6-1.3); POTASSIUM 3.7 mmol/L (3.5-5.1)
[2019-09-04 14:39] LABS: APTT 81.8 Seconds (25.0-31.3); PROTIME 77.5 Seconds (9.20-11.50)
[2019-09-04 14:44] LABS: INR 8.2
[2019-09-04 14:45] LABS: ALBUMIN 2.9 g/dL (3.4-5.0); TOTAL BILIRUBIN 0.4 mg/dL (<0.1-1.0)
[2019-09-04 15:20] LABS: ABSOLUTE LYMPHOCYTES 0.9 thou/uL (0.8-5.3); ABSOLUTE MONOCYTES 0.5 thou/uL (0.0-1.2); ABSOLUTE NEUTROPHILS 16.5 thou/uL (1.6-8.1); PLATELET ESTIMATE ADEQUATE
--- NOTE | 2019-09-04 16:08 | EKG ---
[place] [address] ELECTROCARDIOGRAM REPORT Name: ALEJANDRO MORRIS Room: [place] [address] ADM IN [facility].#: [id number] Admission: 09/04/19 Attend Phys: Dorinda Don Discharge: Date of : 73 Report #: [id number] THIS REPORT FOR: //name// [facility] ED Test Date: 2019-09-04 Test Time: 14:21:40 Pat Name: ALEJANDRO MORRIS Department: Room: [facility] Gender: F Time Motion Analyst: MARY : 1975 Requested By: Tee Stringer Order Number: [id number] MD: Jas Worley Measurements Intervals [place] Rate: 100 P: 38 VT: 178 QRS: 68 QRSD: 108 T: -22 QT: 343 QTc: 443 Interpretive Statements Sinus tachycardia Nonspecific T abnormalities, diffuse leads Compared to ECG 07/11/2019 13:19:20 Sinus rate has increased First degree AV block no longer present Intraventricular conduction delay persists T-wave abnormality still present Electronically Signed On 09-04-2019 16:08:36 MANUFACTURING SUPERVISOR by Jas Worley [email or web address] <ELECTRONICALLY SIGNED> By: Jas Worley MD, [facility] 09/04/19 1608 1421 1421 Jas Worley MD, [facility] /EPI
[2019-09-04 17:34] VITALS: BP 115/64
[2019-09-04 17:55] VITALS: BP 102/58
[2019-09-04 20:00] VITALS: BP 102/61
[2019-09-05] VITALS: BP 107/60
[2019-09-05 04:00] VITALS: BP 104/49
[2019-09-05 05:27] LABS: HEMATOCRIT 28.7 % (37.0-47.0); HEMOGLOBIN 9.2 gm/dL (12.0-15.0); MCH 32.6 pg (26.0-34.0); MCHC 32.3 g/dL (28.0-37.0); MPV 10.1 fl. (7.2-11.1); RBC 2.84 mil/uL (4.20-5.00); RDW-CV 15.6 % (10.5-14.5); WBC 17.5 thou/uL (4.0-11.0)
[2019-09-05 05:46] LABS: PROTIME 32.5 Seconds (9.20-11.50)
[2019-09-05 05:50] LABS: INR 3.3
[2019-09-05 05:52] LABS: ALBUMIN 2.4 g/dL (3.4-5.0); CALCIUM 8.2 mg/dL (8.5-10.1); PHOSPHORUS* 9.4 mg/dL (2.5-4.9); POTASSIUM 3.6 mmol/L (3.5-5.1)
[2019-09-05 05:57] LABS: CREATININE 12.4 mg/dL (0.6-1.3)
[2019-09-05 08:10] VITALS: BP 128/64
[2019-09-05 12:30] VITALS: BP 109/64
[2019-09-05 16:24] VITALS: BP 114/65
[2019-09-05 20:00] VITALS: BP 102/62
[2019-09-05 23:08] LABS: GLYCOHEMOGLOBIN (HGB A1C) 6.5 % (4.8-5.6)
[2019-09-06] VITALS: BP 159/91
[2019-09-06 04:00] VITALS: BP 155/84
[2019-09-06 05:09] LABS: HEMATOCRIT 26.3 % (37.0-47.0); HEMOGLOBIN 8.6 gm/dL (12.0-15.0); MCH 32.4 pg (26.0-34.0); MCHC 32.8 g/dL (28.0-37.0); MCV 98.9 fL (80.0-100.0); MPV 10.3 fl. (7.2-11.1); RBC 2.66 mil/uL (4.20-5.00); RDW-CV 15.4 % (10.5-14.5); WBC 11.9 thou/uL (4.0-11.0)
[2019-09-06 05:18] LABS: PROTIME 14.7 Seconds (9.20-11.50)
[2019-09-06 05:32] LABS: INR 1.5
[2019-09-06 05:50] LABS: ALBUMIN 2.3 g/dL (3.4-5.0); CALCIUM 8.4 mg/dL (8.5-10.1); CREATININE 11.8 mg/dL (0.6-1.3); PHOSPHORUS* 8.2 mg/dL (2.5-4.9); POTASSIUM 3.1 mmol/L (3.5-5.1)
[2019-09-06 08:00] VITALS: BP 147/82
[2019-09-06 11:53] LABS: URINE BILIRUBIN NEGATIVE (Negative); URINE BLOOD TRACE (Negative); URINE CLARITY CLEAR; URINE COLOR YELLOW; URINE GLUCOSE-RANDOM 1+ (Negative); URINE KETONES NEGATIVE (Negative); URINE LEUKOCYTES-REFLEX NEGATIVE (Negative); URINE NITRITE-REFLEX NEGATIVE (Negative); URINE PROTEIN 2+ (Negative); URINE UROBILINOGEN 0.2 E.U./dl (0.2-1.0)
[2019-09-06 12:03] LABS: SQUAMOUS >10 Many /LPF (0-3)
[2019-09-06 12:04] VITALS: BP 138/83
[2019-09-06 12:04] LABS: URINE WBC-REFLEX 0-5 Rare /HPF (0-5)
[2019-09-06 12:06] LABS: URINE RBC 0-2 Rare /HPF (0-2)
[2019-09-06 12:07] LABS: CASTS None Seen /LPF (None Seen); CRYSTALS None Seen /LPF (None Seen); MUCUS None Seen strn/LPF (None Seen)
[2019-09-06] MEDS ORDERED: SENNA-TIME S T1 EACH PO (13:37)
[2019-09-06 14:59] VITALS: BP 138/83
[2019-09-06 16:52] VITALS: BP 129/76
--- NOTE | 2019-09-08 16:50 | CON ---
[address] [address] CONSULTATION Name: ROMELAnnaALEJANDRO Bo Room: [address] IN M.R.#: [id number] Admission: 09/04/19 Attend Phys: Dorinda Don Discharge: 09/06/19 Date of : 73 Report #: [id number] THIS REPORT FOR: //name// CC: Linus Aranda DATE OF SERVICE: 09/05/2019 NEPHROLOGY CONSULTATION LOCATION: The patient is at [facility]. She is in room 222. I am asked to see this 44-year-old female at the request of Dr. Aranda for ESRD and dialysis management. CHIEF COMPLAINT: Dehydration and weakness. HISTORY OF PRESENT ILLNESS: This 44-year-old female with known end-stage renal disease, who is on daily peritoneal dialysis cycler therapy, presented to her physician's office complaining of weakness, nausea, vomiting and feeling unwell since around . She was found to be hypotensive. She was dizzy. She had blood glucose of about 200 and systolic blood pressure in the 90s. She had been having poor oral intake, accompanied by nausea and intermittent vomiting. She was able to keep fluids down, however. She has also been very constipated. Therefore, she was admitted to the hospital. She was admitted late in the evening and was not on the peritoneal dialysis cycler last p.m. PAST MEDICAL HISTORY: Positive for ESRD, antiphospholipid syndrome, hypercoagulable state, prior hemodialysis with complications of access. She has had an electrolyte disturbance, paresthesias, thrombocytopenia, uncontrolled hypertension, and UTI history. She also has secondary hyperparathyroidism and obesity. She has had CVAs x 2. OTHER SURGICAL HISTORY: She has had two C-sections, hysterectomy in 2008, AV fistula placement in 12/2015. Left wrist surgery in the past, placement of a PD catheter 03/29/2017. FAMILY HISTORY: Positive for cardiac disease and hypertension. SOCIAL HISTORY: Very supportive network of family and friends. Family is at the bedside. She is a never tobacco user. She does drink social alcohol, no recreational drugs. ALLERGIES: No known drug allergies. MEDICATIONS: Her reported medications are aspirin 81 mg daily, warfarin 4 [place] [address] CONSULTATION Name: ALEJANDRO MORRIS Room: [address]#: [id number] Admission: 09/04/19 Attend Phys: Dorinda Don Discharge: 09/06/19 Date of : 73 Report #: [id number], atorvastatin 80 mg daily, clonidine 0.3 mg b.i.d., furosemide 40 mg daily, sertraline 50 mg daily, fish oil 1200 mg daily, sevelamer 800 mg t.i.d., bupropion XL 300 mg daily, docusate 100 mg daily, lactulose 20 g daily and losartan, which is 25 mg daily. REVIEW OF SYSTEMS: HEENT: No recent changes in vision or hearing. GENERAL: She has felt weak and nauseated with some episodic vomiting. CHEST: She has not had any chest pain or irregular heart rhythm that she is aware of. PULMONARY: She has not been short of breath. Denies any coughing or new pulmonary symptoms. GASTROINTESTINAL: She has had abdominal discomfort, nausea, episodic vomiting, and severe constipation. GENITOURINARY: She does have end-stage renal disease, but no acute urinary symptoms. HEMATOLOGIC AND LYMPHATIC: She has no malignancy history. Her hemoglobin is in the 9-10 grams percent range. ENDOCRINE: She is not hypothyroid. She denies diabetes. MUSCULOSKELETAL: Weakness. SKIN AND INTEGUMENT: No new rashes or lesions. PSYCHIATRIC: No bipolar disease. Positive anxiety. Some depression. NEUROLOGIC: She has had CVAs x 2. No Parkinson's disease, no seizure disorder. Other 14-point review of systems as above. PHYSICAL EXAMINATION: GENERAL: She is awake, alert, lying in bed, able to provide a very adequate history. VITAL SIGNS: At present show a temperature of 36.4, heart rate 100, respirations 18, blood pressure 128/64, O2 saturation 96% on room air. HEENT: She is atraumatic and normocephalic. Pupils do react to light. NECK: Supple, no increased jugular venous pressure while supine. CHEST: Generally clear. HEART: With a regular rhythm. No rubs audible. No audible murmurs. ABDOMEN: Soft, positive bowel sounds, obese. PD catheter in place. Exit site clean, no tunnel tenderness or inflammation. EXTREMITIES: Show no edema, soft calves, negative Homans. She has 2+ femoral pulses distally. Her extremities are perfused. NEUROLOGIC: Cranial nerves, sensory and motor appear to be at her recent baseline. PSYCHIATRIC: She is cooperative. LABORATORY DATA: Shows a white count of 17,500, hemoglobin 9.2, hematocrit 28.7, platelets 227,000. Chemistries show a sodium of 134, potassium 3.6, chloride 96, CO2 18, BUN and creatinine 77 and 12.4, calcium 8.2, phosphorus 9.4, albumin 2.4. Her coags show a PT of 32.5, INR 3.3. [address] [place] [address] CONSULTATION Name: ALEJANDRO MORRIS Room: [address]#: [id number] Admission: 09/04/19 Attend Phys: Dorinda Don Discharge: 09/06/19 Date of : 73 Report #: [id number] IMAGING STUDIES: Include an abdominal x-ray that showed marked improvement in small bowel distention and small bowel obstruction. Dialysis catheter is in place. Her abdominal and pelvic CT scan that was done yesterday without any IV contrast showed no chest pathology. She has steatosis of the liver. Gallbladder was unremarkable. Pancreas, adrenals and spleen unremarkable. Kidneys show atrophy. There was a large amount of food in the stomach or small bowel. When this was performed yesterday was evident of some dilatation. She had increased stool noted in the colon. Appendix was unremarkable. Bladder was unremarkable. IMPRESSION: 1. End-stage renal disease, on night cycler nightly for peritoneal dialysis. 2. Abdominal pain, nausea and vomiting, likely related both to obstipation as well as perhaps gastroparesis. 3. Recent ECV depletion. 4. Hypertension history with recent hypotension related to above. 5. Antiphospholipid syndrome. 6. Hypercoagulable state. 7. Prior failed hemodialysis accesses. 8. Hypertension with recent symptomatic hypotension. 9. Anemia of chronic kidney disease. 10. Hypoalbuminemia. 11. History of cerebrovascular accident x 2. 12. Anxiety, depression. 13. Obesity. 14. Recent orthostatic hypotension and ECV depletion. PLAN: The patient was purposely kept off of peritoneal dialysis last night. She will be hooked up to the cycler today. Orders have been given. We will refrain from doing her usual 2.5% solution in its entirety with a last fill. We will follow her labs closely. Adjust fluids and dialysis as needed. Further recommendations to follow. <ELECTRONICALLY SIGNED> By: Clarisse Uribe MD 09/08/19 1650 [id number] Uribe MD /nt
== END 2019-09-06 16:58 | disposition home or self-care (01) | DRG 388 ==
LOC: M.ERS 13:33 → M.2W 15:10 → M.TBA-ER 15:10 → M.2W 17:55
PROVIDERS: Family Medicine; ADMIT Family Medicine
PROC: 3E1M39Z Irrigation of Peritoneal Cavity using Dialysate, Percutaneous Approach (ICD-10-PCS; principal; 2019-09-05)
DX: K56.699 Other intestinal obstruction unspecified as to partial versus complete obstruction (principal); N18.6 End stage renal disease; I12.0 Hypertensive chronic kidney disease with stage 5 chronic kidney disease or end stage renal disease; D68.61 Antiphospholipid syndrome; R65.10 Systemic inflammatory response syndrome (SIRS) of non-infectious origin without acute organ dysfunction; N25.81 Secondary hyperparathyroidism of renal origin; E66.01 Morbid (severe) obesity due to excess calories; E86.0 Dehydration; R73.9 Hyperglycemia, unspecified; K59.09 Other constipation; D63.1 Anemia in chronic kidney disease; F41.9 Anxiety disorder, unspecified; F32.9 Major depressive disorder, single episode, unspecified; D53.9 Nutritional anemia, unspecified; E88.09 Other disorders of plasma-protein metabolism, not elsewhere classified; D70.9 Neutropenia, unspecified; E87.6 Hypokalemia; I95.9 Hypotension, unspecified; Z79.899 Other long term (current) drug therapy; Z79.82 Long term (current) use of aspirin; Z79.01 Long term (current) use of anticoagulants; Z86.73 Personal history of transient ischemic attack (TIA), and cerebral infarction without residual deficits; Z98.891 History of uterine scar from previous surgery; Z90.710 Acquired absence of both cervix and uterus; Z82.49 Family history of ischemic heart disease and other diseases of the circulatory system; Z99.2 Dependence on renal dialysis; Z87.440 Personal history of urinary (tract) infections

== ENCOUNTER 2019-09-14 02:27 | Inpatient (IN) | payer MEDICARE, OTHER ==
[~2019-09-14] VITALS: Ht 172.7 cm; Wt 142.4 kg
[~2019-09-14 02:27] MED LIST changes: +SENNA-TIME S T1 EACH PO
[2019-09-14 02:28] VITALS: BP 141/83
[2019-09-14 03:11] LABS: HEMATOCRIT 25.6 % (37.0-47.0); HEMOGLOBIN 8.4 gm/dL (12.0-15.0); MCH 32.2 pg (26.0-34.0); MCHC 32.8 g/dL (28.0-37.0); MCV 98.4 fL (80.0-100.0); MPV 10.9 fl. (7.2-11.1); NUCLEATED RBCS 0 /100WBC; PLATELET COUNT* 114 thou/uL (150-400); RDW-CV 14.8 % (10.5-14.5); WBC 19.2 thou/uL (4.0-11.0)
[2019-09-14 03:21] LABS: CALCIUM 9.5 mg/dL (8.5-10.1); CREATININE 12.3 mg/dL (0.6-1.3); POTASSIUM 3.4 mmol/L (3.5-5.1)
[2019-09-14 03:26] LABS: ALBUMIN 2.3 g/dL (3.4-5.0); TOTAL BILIRUBIN 0.4 mg/dL (<0.1-1.0); TOTAL PROTEIN 7.8 g/dL (6.4-8.2)
[2019-09-14 04:31] LABS: BE -4.7 mmol/L (-2 to +3); PCO2 33.6 mmHg (35.0-45.0); pH 7.388 (7.340-7.450)
[2019-09-14 04:51] LABS: ABSOLUTE LYMPHOCYTES 0.4 thou/uL (0.8-5.3); ABSOLUTE NEUTROPHILS 17.9 thou/uL (1.6-8.1); ANISOCYTOSIS Occasional; PLATELET ESTIMATE DECREASED; TOXIC GRANULATION 2+
[2019-09-14 05:40] VITALS: BP 123/67
[2019-09-14 06:22] VITALS: BP 113/46
[2019-09-14 10:25] LABS: CALCIUM 9.1 mg/dL (8.5-10.1); CREATININE 12.9 mg/dL (0.6-1.3); POTASSIUM 3.6 mmol/L (3.5-5.1)
[2019-09-14 10:26] LABS: INR 1.7; PROTIME 16.8 Seconds (9.20-11.50)
--- NOTE | 2019-09-14 11:00 | NUR ---
REPORT CALLED TO CATE ON . PT TRANSFERRED VIA BED
[2019-09-14 11:10] VITALS: BP 140/96
--- NOTE | 2019-09-14 13:44 | NUR ---
REC'D REPORT APPROX 1050 FROM JSSI RN. PATIENT ARRIVED TO UNIT VIA BED AND NURSING STAFF. ASSESSMENT IN AGREEMENT WITH PREVIOUSLY DOCUMENTED ASSESSMENT EARLIER TODAY. A&OX4, ABLE TO COMMUNICATE NEEDS TO STAFF. AT BEDSIDE. R HAND IV ABX FINISHED AND NEXT ABX INFUSING. DR. WOODRUFF TO ROOM FOR ASSESSMENT. CALL LIGHT IN REACH. HOURLY ROUNDING FOR SAFETY/NEEDS.
[2019-09-14 16:22] VITALS: BP 116/63
[2019-09-14 20:00] VITALS: BP 139/74
[2019-09-15] VITALS (7 sets, daily range): BP systolic 84–123; BP diastolic 38–67
[2019-09-15 04:52] LABS: MCH 31.8 pg (26.0-34.0); MCHC 32.2 g/dL (28.0-37.0); MPV 10.4 fl. (7.2-11.1); RBC 1.98 mil/uL (4.20-5.00); WBC 14.6 thou/uL (4.0-11.0)
[2019-09-15 04:57] LABS: INR 1.7
[2019-09-15 04:59] LABS: ALBUMIN 1.6 g/dL (3.4-5.0); CALCIUM 8.5 mg/dL (8.5-10.1); CREATININE 12.4 mg/dL (0.6-1.3); MAGNESIUM 1.9 mg/dL (1.8-2.4); POTASSIUM 3.2 mmol/L (3.5-5.1); TOTAL BILIRUBIN 0.4 mg/dL (<0.1-1.0); TOTAL PROTEIN 6.4 g/dL (6.4-8.2)
[2019-09-15 05:51] LABS: HEMOGLOBIN 6.3 gm/dL (12.0-15.0)
[2019-09-15 05:52] LABS: HEMATOCRIT 19.6 % (37.0-47.0)
[2019-09-15 06:32] LABS: HEMATOCRIT 18.1 % (37.0-47.0); HEMOGLOBIN 5.9 gm/dL (12.0-15.0)
--- NOTE | 2019-09-15 09:24 | NUR ---
ASSUMED PATIENT CARE AT 1900. ASSESSMENT COMPLETED CHARTED. PATIENT IS SR/PVCS ON THE MONITOR. CRITICAL LABS RECEIVED ON PATIENT, PHYSICIAN NOTIFIED, NEW ORDERS RECEIVED. HOURLY ROUNDING IN PLACE FOR PATIENT SAFETY. CLWR.
--- NOTE | 2019-09-15 12:22 | NUR ---
PT OFF UNIT TO MRI.
--- NOTE | 2019-09-15 13:52 | NUR ---
PT RETURN TO UNIT.
[2019-09-15 16:12] LABS: HEMATOCRIT 21.9 % (37.0-47.0); HEMOGLOBIN 7.2 gm/dL (12.0-15.0); MCH 32.1 pg (26.0-34.0); MCV 97.2 fL (80.0-100.0); RBC 2.25 mil/uL (4.20-5.00); RDW-CV 15.3 % (10.5-14.5); WBC 13.9 thou/uL (4.0-11.0)
--- NOTE | 2019-09-15 16:56 | NUR ---
Pt lives at home with spouse and has been independent. Readmitted. Pt uses CPAP at night and has home peritoneal dialysis. Pt has hx of HH agency, name of agency unknown and hx of inpt rehab at [facility]. SW to continue to follow to assist with safe dc planning.
[2019-09-16] VITALS: BP 116/62
[2019-09-16 04:00] VITALS: BP 111/53
[2019-09-16 05:18] LABS: HEMATOCRIT 20.8 % (37.0-47.0); HEMOGLOBIN 7.1 gm/dL (12.0-15.0); MCHC 34.3 g/dL (28.0-37.0); MCV 96.4 fL (80.0-100.0); MPV 9.7 fl. (7.2-11.1); RBC 2.16 mil/uL (4.20-5.00); RDW-CV 15.3 % (10.5-14.5)
[2019-09-16 05:32] LABS: INR 1.9; PROTIME 18.7 Seconds (9.20-11.50)
[2019-09-16 05:37] LABS: ALBUMIN 1.5 g/dL (3.4-5.0); CALCIUM 8.3 mg/dL (8.5-10.1); CREATININE 12.3 mg/dL (0.6-1.3); POTASSIUM 3.5 mmol/L (3.5-5.1); TOTAL BILIRUBIN 0.4 mg/dL (<0.1-1.0); TOTAL PROTEIN 6.5 g/dL (6.4-8.2)
--- NOTE | 2019-09-16 06:57 | NUR ---
ASSUMED CARE OF PT AFTER REPORT AT 1930. PT A&0X4. VSS. PHYSICAL ASSESSMENT COMPLETED AND CHARTED. PT ON RA. PT TRACING SR ON TELE. PT COMPLAINED OF BILATERAL LEG PAIN- MEDS GIVEN PER NOV. PERITONEAL DIALYSIS ONGOING. CALL LIGHT WITHIN REACH.
--- NOTE | 2019-09-16 08:10 | CON ---
[address] [address] CONSULTATION Name: ROMELAnnaALEJANDRO Bo Room: [place] [address] ADM IN M.R.#: [id number] Admission: 09/14/19 Attend Phys: Brandon Wilks MD Discharge: Date of : 73 Report #: [id number] THIS REPORT FOR: //name// CC: Linus Wilks DATE OF SERVICE: 09/15/2019 NEPHROLOGY CONSULTATION CONSULTING PHYSICIAN: Charu Catherine MD REASON FOR NEPHROLOGY CONSULTATION: End-stage renal disease, on peritoneal dialysis for dialysis needs. REASON FOR ADMISSION: Weakness, bilateral knee pain and metabolic acidosis was another reason for admission. HISTORY OF PRESENT ILLNESS: The patient is a 44-year-old female with past medical history of end-stage renal disease, on peritoneal dialysis on nightly cycler followed with Dr. Watters who is one of my partners and multiple other medical problems, who was here last week at [facility] with ileus and was treated for obstipation. She came in complaining of bilateral knee pain, weakness and loose stools. The peritoneal dialysis was conducted last night. The patient is quite sleepy this morning, but she was arousable and she was oriented and she complained of having no stool output here in the hospital so far. During her stay here since admission, her hemoglobin has dropped from 8.4 to 6.3 and 5.9. Neurology is also evaluating her for bilateral lower extremity weakness and they think it is bilateral proximal lower extremity weakness and they recommended MRI of her back and possible EMG as outpatient. ALLERGIES: No known allergies. REVIEW OF SYSTEMS: As mentioned in history of present illness, otherwise 10-point review of systems are negative. 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 FAMILY HISTORY: Heart disease. SOCIAL HISTORY: She uses a marijuana, but has not used in the last 3 months, former smoker, no alcohol. Alcohol use [place] [address] CONSULTATION Name: ALEJANDRO MORRIS Bo Room: [address] IN [facility]#: [id number] Admission: 09/14/19 Attend Phys: Brandon Wilks MD Discharge: Date of : 73 Report #: [id number] HOME MEDICATIONS: Include aspirin, Coumadin, atorvastatin, clonidine, furosemide, sertraline, docosahexaenoic acid, sevelamer, bupropion, lactulose, Losartan. PHYSICAL EXAMINATION: VITAL SIGNS: Blood pressure is 84/54, respiratory rate is 20, pulse rate is 94, temperature 38 and pulse ox she is on room air. She was 100%. GENERAL: She is drowsy, but she is easily arousable and she was oriented x 3. HEAD AND EYES: Atraumatic, normocephalic. Normal conjunctivae. EARS, NOSE, AND EYES: Normal mucous membranes. NECK: No JVD. CHEST: Bilaterally clear to auscultation. No crackles or wheezing. CARDIOVASCULAR: S1, S2 normal. No murmurs. ABDOMEN: Soft, nondistended, nontender, obese and PD catheter intact in left lower quadrant and it is intact. There is no erythema or drainage around the site. EXTREMITIES: Lower extremities; there is no edema in lower extremities. SKIN: Dry. Turgor is normal. NEUROLOGIC: Gross neurological function is normal. PSYCHIATRIC: Mood and affect seems to be normal. LABORATORY DATA: Her white count is 14.6, hemoglobin 5.9, platelet count is 98, potassium 3.2 and BUN was 86, CO2 was 20, sodium was 114. Other labs are reviewed. IMAGING: Knee x-ray venous Doppler studies CT chest x-ray were reviewed. ASSESSMENT: 1. End-stage renal disease, on peritoneal dialysis. 2. Bilateral lower extremity weakness. Neurology is following. 3. Hypokalemia. 4. History of hypertension, but currently hypotensive. 5. History of cerebrovascular accident. 6. History of antiphospholipid antibody syndrome. PLAN: 1. We will continue her peritoneal dialysis on her cycler. Because of blood pressure is running low, holding parameter for blood pressure medications were placed. Avoid hypotension. The patient will be dialyzed using 1.5% dextrose solution tonight because she has been hypotensive. We will continue otherwise her five exchanges overnight over 11 hours at 2300 fill volume each time with 1500 day dwell. [place] [address] CONSULTATION Name: ALEJANDRO MORRIS Bo Room: [address] IN [facility]#: [id number] Admission: 09/14/19 Attend Phys: Brandon Wilks MD Discharge: Date of : 73 Report #: [id number] Please avoid constipation. Also, because otherwise it will cause mechanical problems with peritoneal dialysis. Thank you for this consultation. We will continue to follow with you. Discussed with the patient and the patient's nurse this morning. <ELECTRONICALLY SIGNED> By: Louisa Mejía MD 09/16/19 0810 [id number] Mejía MD /nt
--- NOTE | 2019-09-16 11:19 | NUR ---
PT OFF UNIT TO MRI.
[2019-09-16 12:15] VITALS: BP 136/74
--- NOTE | 2019-09-16 12:59 | NUR ---
PT RETURN FROM MRI AROUND 1210.
[2019-09-16 15:37] VITALS: BP 125/71
[2019-09-16 20:25] VITALS: BP 119/71
[2019-09-17] VITALS (7 sets, daily range): BP systolic 116–151; BP diastolic 59–86
--- NOTE | 2019-09-17 06:42 | NUR ---
PT HAS RESTED COMFORTABLE IN BED. SR ON MONITOR. REMAINS ON RA. PT TO HAVE CT OF PELVIS DONE BUT CURRENTLY ON PD. PT HAS HAD NO COMPLAINTS FOR ME DURING THIS SHIFT.
[2019-09-17 07:38] LABS: MCH 32.7 pg (26.0-34.0); MCHC 33.6 g/dL (28.0-37.0); MCV 97.3 fL (80.0-100.0); MPV 10.1 fl. (7.2-11.1); RBC 2.02 mil/uL (4.20-5.00); RDW-CV 15.6 % (10.5-14.5); WBC 11.2 thou/uL (4.0-11.0)
[2019-09-17 07:41] LABS: HEMATOCRIT 19.6 % (37.0-47.0); HEMOGLOBIN 6.6 gm/dL (12.0-15.0)
[2019-09-17 07:48] LABS: INR 2.2; PROTIME 21.6 Seconds (9.20-11.50)
[2019-09-17 07:49] LABS: CALCIUM 8.5 mg/dL (8.5-10.1); CREATININE 12.5 mg/dL (0.6-1.3); MAGNESIUM 2.2 mg/dL (1.8-2.4); POTASSIUM 3.8 mmol/L (3.5-5.1)
--- NOTE | 2019-09-17 12:09 | NUR ---
ASSUMED CARE OF PT AT 0730. PT RESTING IN BED. A&0X4, DROWSY. DENIES ANY PAIN OR SHORTNESS OF BREATH AT THIS TIME. TRACING SR WITH PVC'S BBB ON THE TITLE CLERK. ON RA SAT UPPER 90'S. PT CURRENTLY ON PERITONEAL DIAYSIS. PT HGB 6.[address] ATKINS NOTIFIED. ORDERS RECEIVED FOR 1 UNIT PRBC. BLOOD TRANSFUSING AT THIS TIME. PT UP WITH MAX ASSIST. PT GOAL FOR TODAY IS PHYSICAL THERAPY, INCREASE ACTIVITY AND REMAIN FREE FROM ANY REACTION WITH BLOOD TRANSFUSION. AM ASSESSMENT CHARTED. MEDICATIONS PER NOV. PT REPOSITIONED EVERY 2 HOURS FOR COMFORT. HOURLY ROUNDING OBSERVED. BED IN LOW POSITION. CALL LIGHT WITHIN REACH. WILL CONTINUE PLAN OF CARE.
[2019-09-17 13:52] LABS: HEMATOCRIT 23.7 % (37.0-47.0); HEMOGLOBIN 7.8 gm/dL (12.0-15.0)
[2019-09-17 17:31] LABS: URINE BILIRUBIN NEGATIVE (Negative); URINE BLOOD 1+ (Negative); URINE CLARITY CLEAR; URINE COLOR YELLOW; URINE GLUCOSE-RANDOM TRACE (Negative); URINE KETONES NEGATIVE (Negative); URINE LEUKOCYTES-REFLEX NEGATIVE (Negative); URINE NITRITE-REFLEX NEGATIVE (Negative); URINE PROTEIN 1+ (Negative); URINE UROBILINOGEN 0.2 E.U./dl (0.2-1.0)
[2019-09-17 17:39] LABS: CASTS None Seen /LPF (None Seen); CRYSTALS None Seen /LPF (None Seen); SQUAMOUS >10 Many /LPF (0-3); URINE RBC 0-2 Rare /HPF (0-2); URINE WBC-REFLEX 0-5 Rare /HPF (0-5)
--- NOTE | 2019-09-17 18:07 | NUR ---
NO ACUTE CHANGES THROUGHOUT SHIFT. REFER TO CHARTING. URINALYSIS OBTAINED AND SENT TO LAB. REFER TO RESULTS. PT HAD CT PELVIS TODAY-REFER TO RESULTS. DENIES ANY PAIN OR SHORTNESS OF BREATH THIS AFTERNOON. WORKED WITH PHYSICAL THERAPY TODAY-TOLERATED FAIR. CONTINUES TO TRACE SR WITH PVC'S ON THE METALLURGICAL LAB TECHNICIAN. ON RA SAT UPPER 90'S. ON 1500 ML FLUID RESTRICTION. MEDICATIONS PER NOV. PT REPOSITIONED EVERY 2 HOURS FOR COMFORT. HOURLY ROUNDING OBSERVED. BED IN LOW POSITION. BED ALARM IN PLACE. FALL PRECAUTIONS IN PLACE. CALL LIGHT WITHIN REACH. WILL CONTINUE PLAN OF CARE.
[2019-09-18] VITALS: BP 149/69
[2019-09-18 04:00] VITALS: BP 133/73
--- NOTE | 2019-09-18 07:58 | NUR ---
PT IS ABLE TO COMMUNICATE HER NEEDS TO STAFF EFFECTIVELY. CURRENT PAIN MEDICATION REGIMEN HAS BEEN ADEQUATE FOR CONTROLLING HER PAIN UP TO THIS TIME. PT RECEIVING PERITONEAL DIALYSIS NIGHTLY. 1500 ML FLUID RESTTRICTION MAINTAINED; PT ONLY MARGINALLY COMPLIANT.
[2019-09-18 08:00] VITALS: BP 139/75
[2019-09-18 08:54] LABS: HEMATOCRIT 23.2 % (37.0-47.0); HEMOGLOBIN 7.9 gm/dL (12.0-15.0); MCH 32.3 pg (26.0-34.0); MCHC 34.2 g/dL (28.0-37.0); MCV 94.5 fL (80.0-100.0); MPV 9.4 fl. (7.2-11.1); RBC 2.46 mil/uL (4.20-5.00); RDW-CV 17.8 % (10.5-14.5); WBC 9.1 thou/uL (4.0-11.0)
[2019-09-18 08:57] LABS: CALCIUM 8.2 mg/dL (8.5-10.1); CREATININE 11.6 mg/dL (0.6-1.3); INR 2.4; MAGNESIUM 2.3 mg/dL (1.8-2.4); POTASSIUM 4.9 mmol/L (3.5-5.1); PROTIME 23.4 Seconds (9.20-11.50)
[2019-09-18] MEDS ORDERED: CEFDINIR300 MG PO (10:26)
[2019-09-18] MEDS ORDERED: LIDOPATCH1 EACH TOP (10:26)
[2019-09-18] MEDS ORDERED: PEPCID20 MG PO (10:26)
[2019-09-18] MEDS ORDERED: EPOGEN2000 UNIT/ SUBQ (10:26)
--- NOTE | 2019-09-18 12:45 | NUR ---
ASSUMED CARE OF PT AT 0730. A&0X4, PT UP TO RECLINER LATE MORNING- UP WITH MAX ASSIST OF 2- WEAKNESS NOTED. PT ABLE TO AMBULATE ONCE UP-COMPLAINS OF PAIN AND DISCOMFORT TO KNEES. LIDOCAINE PATCHES IN PLACE. PT TRACING SR WITH FIRST DEGREE ON THE MANAGER CREDIT RISK. ON RA SAT UPPER 90'S. DENIES ANY SHORTNESS OF BREATH. PT HAD PERITONEAL DIALYSIS OVER NIGHT. PT GOAL FOR TODAY IS UP TO RECLINER FOR MEALS, AMBULATE IN [place] AND DISCHARGE HOME WITH HOME HEALTH. AM ASSESSMENT CHARTED. MEDICATIONS PER NOV. PT REPOSITIONED EVERY 2 HOURS FOR COMFORT. HOURLY ROUNDING OBSERVED. BED IN LOW POSITION. CALL LIGHT WITHIN REACH. WILL CONTINUE PLAN OF CARE.
[2019-09-18 12:46] VITALS: BP 139/75
[2019-09-18 14:24] VITALS: BP 139/75
[2019-09-18 14:27] VITALS: BP 139/75
--- NOTE | 2019-09-18 14:51 | NUR ---
CM faxed referrals to [facility] [phone], [facility] [phone] and [facility] [phone] per consult. Each clinic will contact Pt to schedule appts.
--- NOTE | 2019-09-18 16:55 | NUR ---
DISCHARGE ORDERS RECEIVED. DISCHARGE INSTRUCTIONS, CARE NOTES, SCRIPTS AND FOLLOW UP APPTS GIVEN TO PT. PT COMMUNICATES UNDERSTANDING OF DISCHARGE TEACHING. BOTH IV'S AND DIRECT CUSTOMER SERVICE REPRESENTATIVE REMOVED. PT DISCHARGED WITH ALL BELONGINGS AND PAPERWORK VIA WHEELCHAIR WITH [employer] TO FAMILY OWN PERSONAL VEHICLE TO HOME WITH HOME HEALTH SERVICES.
== END 2019-09-18 16:55 | disposition home health service (06) | DRG 871 ==
LOC: M.ERS 02:27 → M.2W 04:52 → M.TBA-ER 04:52 → M.ORTHSURG 06:11 → M.2W 11:02
PROVIDERS: Internal Medicine; Personal Emergency Response Attendant; ADMIT Internal Medicine
PROC: 3E1M39Z Irrigation of Peritoneal Cavity using Dialysate, Percutaneous Approach (ICD-10-PCS; principal; 2019-09-14)
PROC: 30233N1 Transfusion of Nonautologous Red Blood Cells into Peripheral Vein, Percutaneous Approach (ICD-10-PCS; principal; 2019-09-14)
DX: A41.9 Sepsis, unspecified organism (principal); N18.6 End stage renal disease; J18.9 Pneumonia, unspecified organism; I12.0 Hypertensive chronic kidney disease with stage 5 chronic kidney disease or end stage renal disease; E87.2 Acidosis; D68.61 Antiphospholipid syndrome; Z68.42 Body mass index [BMI] 45.0-49.9, adult; D61.9 Aplastic anemia, unspecified; M25.562 Pain in left knee; M25.561 Pain in right knee; E87.6 Hypokalemia; F12.90 Cannabis use, unspecified, uncomplicated; F17.210 Nicotine dependence, cigarettes, uncomplicated; R15.9 Full incontinence of feces; D53.9 Nutritional anemia, unspecified; M25.461 Effusion, right knee; E66.01 Morbid (severe) obesity due to excess calories; K43.9 Ventral hernia without obstruction or gangrene; Z86.73 Personal history of transient ischemic attack (TIA), and cerebral infarction without residual deficits; Z90.710 Acquired absence of both cervix and uterus; Z82.49 Family history of ischemic heart disease and other diseases of the circulatory system; Z99.2 Dependence on renal dialysis; Z79.01 Long term (current) use of anticoagulants; Z79.899 Other long term (current) drug therapy; Z79.82 Long term (current) use of aspirin

== ENCOUNTER 2019-10-31 18:51 | Inpatient (IN) | payer MEDICARE, BC ==
[~2019-10-31] VITALS: Ht 172.7 cm; Wt 146.1 kg
--- NOTE | ~2019-10-31 | EKG ---
[place] [address] ELECTROCARDIOGRAM REPORT Name: ALEJANDRO MORRIS Room: [facility]#: [id number] Admission: 10/31/19 Attend Phys: Discharge: Date of : 73 Date of Service: 10/31/19 1908 Report #: [id number] THIS REPORT FOR: cc: Linus Gay Bradley L. DO Epiphany, Epiphany MD ~ THIS REPORT FOR: //name// [facility] ED Test Date: 2019-10-31 Test Time: 19:08:44 Pat Name: ALEJANDRO MORRIS Department: Room: Gender: F Community Education Specialist: HENRY : 1975 Requested By: Dirk Dumas Order Number: [id number] MD: Measurements Intervals [place] Rate: 77 P: 66 NE: 203 QRS: 59 QRSD: 116 T: 42 QT: 457 QTc: 518 Interpretive Statements Sinus rhythm Borderline prolonged NE interval Consider left atrial enlargement Incomplete left bundle branch block Low voltage, precordial leads Artifact in lead(s) I,aVR,aVL,V1,V2 and baseline wander in lead(s) V1 Compared to ECG 09/04/2019 14:21:40 Left bundle-branch block now present Low QRS voltage now present Sinus tachycardia no longer present T-wave abnormality no longer present [email or web address] By: 07 07 Leta Gillette MD /EPI
--- NOTE | ~2019-10-31 | CON ---
[address] [address] CONSULTATION Name: ALEJANDRO MORRIS Bo Room: [address] IN .R.#: [id number] Admission: 11/01/19 Attend Phys: Charu Catherine MD Discharge: Date of : 73 Report #: [id number] THIS REPORT FOR: //name// cc: Liuns Gay Bradley L. DO ~ THIS REPORT FOR: //name// CC: Linus Olson DICTATED BY: Shanice BARRY DATE OF SERVICE: 11/05/2019 This is ASHA Mason-, dictating consultation note for Dr. Linda Vo. PRIMARY CARE PHYSICIAN: Linus Gay DO Please note at the time of this dictation, the patient was seen and physically examined by myself. REASON FOR CONSULTATION: Anemia and positive Hemoccult. HISTORY OF PRESENT ILLNESS: The patient had an EGD and colonoscopy in 07/2019 for anemia showing a normal upper. She did have a little bit of erosive gastropathy, colon was nonthrombosed, external hemorrhoids, diverticulum, very redundant colon with significant looping of her bowel with a fair bowel prep. ALLERGIES: No known drug allergies. MEDICATIONS: From home include aspirin, warfarin, Lipitor, clonidine, Lasix, Zoloft, fish oil, Renvela, bupropion, Kristalose and Cozaar. PAST MEDICAL HISTORY: Hypertension, CVA x 2, she has got antiphospholipid antibody syndrome, end-stage renal disease, on peritoneal dialysis. PAST SURGICAL HISTORY: Two C-sections, full hysterectomy. She has had a fistula placed, left wrist surgery. FAMILY HISTORY: Negative for any GI or female cancers. SOCIAL HISTORY: Past use of alcohol, no tobacco or illegal drug use at this time. REVIEW OF SYSTEMS: Twelve-point review of systems is essentially negative except what is mentioned in HPI. PHYSICAL EXAMINATION: VITAL SIGNS: Temperature 36.4, pulse 90, respirations 22, blood pressure 121/55. HEART: Regular rate and rhythm with a murmur noted. LUNGS: Diminished with some expiratory wheezes. ABDOMEN: Soft, nontender, nondistended. Wound noted under her pannus. EXTREMITIES: Noting multiple hematomas to her thighs and legs. LABORATORY DATA: Hemoglobin on admission was 6.4. The patient has received 4 units thus far. Hemoglobin currently is 7, white count is 17.7, platelets 72. PT is 35.5, INR is 3.6, GFR is 4. Total bilirubin on admission was normal and remains normal at 0.4, alkaline phosphatase was elevated at 171. It is now trending down at 150, ALT had been up to 216, now down trending to 140, AST was 483, trending down now to 147. Her pO2 was only 58, she is on oxygen. Ultrasound was normal. IMPRESSION: 1. Positive occult stool. 2. Acute on chronic anemia. 3. Thrombocytopenia. 4. Transaminitis. 5. Leukocytosis. 6. Influenza A positive. 7. Antiphospholipid syndrome. 8. Chronic kidney disease, peritoneal dialysis. PLAN: 1. Recommended to transfuse to keep hemoglobin greater than 7. 2. No plans for any endoscopic evaluation at this time, October essentially negative upper and lower scopes. 3. Monitor for any overt bleeding. 4. Continue with her current bowel regimen. Thank you for allowing us to participate in this patient's care. Please do not hesitate to call with any questions in regard to this consult. By: 1137 46Linda Vo MD /nt
[~2019-10-31 18:51] MED LIST changes: +CEFDINIR300 MG PO; +EPOGEN2000 UNIT/ SUBQ; +LIDOPATCH1 EACH TOP; +PEPCID20 MG PO
[2019-10-31 18:53] VITALS: BP 106/67
[2019-10-31 19:24] LABS: HEMATOCRIT 21.8 % (37.0-47.0); HEMOGLOBIN 7.1 gm/dL (12.0-15.0); MCH 31.6 pg (26.0-34.0); MCHC 32.4 g/dL (28.0-37.0); MCV 97.3 fL (80.0-100.0); MPV 9.3 fl. (7.2-11.1); NUCLEATED RBCS 0 /100WBC; PLATELET COUNT* 124 thou/uL (150-400); RBC 2.24 mil/uL (4.20-5.00); RDW-CV 18.6 % (10.5-14.5); WBC 20.1 thou/uL (4.0-11.0)
[2019-10-31 19:32] LABS: CALCIUM 7.8 mg/dL (8.5-10.1); CREATININE 8.8 mg/dL (0.6-1.3); POTASSIUM 3.9 mmol/L (3.5-5.1)
[2019-10-31 19:37] LABS: ABSOLUTE EOSINOPHILS 0.2 thou/uL (0.0-0.7); ABSOLUTE MONOCYTES 0.2 thou/uL (0.0-1.2); ABSOLUTE NEUTROPHILS 18.7 thou/uL (1.6-8.1); PLATELET ESTIMATE DECREASED
[2019-10-31 19:45] LABS: ALBUMIN 1.5 g/dL (3.4-5.0); TOTAL BILIRUBIN 0.3 mg/dL (<0.1-1.0); TOTAL PROTEIN 6.5 g/dL (6.4-8.2)
[2019-10-31 20:01] LABS: APTT 73.2 Seconds (25.0-31.3); PROTIME 19.7 Seconds (9.20-11.50)
[2019-10-31 20:49] LABS: PCO2 33.9 mmHg (35.0-45.0); pH 7.306 (7.340-7.450)
[2019-10-31 21:04] LABS: PO2 28.6 mmHg (75.0-100.0)
[2019-11-01] VITALS (19 sets, daily range): BP systolic 97–147; BP diastolic 54–95
--- NOTE | 2019-11-01 08:10 | NUR ---
ADMITTED TO ICU BED 5 @ 0100, SEE ASSESSMENTS. SCABBED ABRASIONS X3 TO BLE, PHOTOGRAPHS PLACED IN CHART. DARK BROWN DISCOLORATION TO BILATERAL GROIN FOLDS, STATES THIS APPEARED RECENTLY AND BELIEVED THAT IT WAS MOLD GROWING ON HER SKIN. DOES NOT WIPE AWAY EASILY WITH WASHING. LESION NOTED BENEATH PANUS DISTAL TO NAVAL, WHITE DRAINAGE; PHOTOGRAPH PLACED IN CHART AND DRESSED WITH ISLAND FOAM DRSG. BG ON ADMIT 59, JUICE AND SODA GIVEN WITH INCREASE IN BG TO 65; BG CURRENTLY 97. PT HAS BEEN TURNED Q2HR THROUGHOUT THE SHIFT. CALL LIGHT WITHIN REACH.
[2019-11-01 09:11] LABS: ABSOLUTE MONOCYTES 0.5 thou/uL (0.0-1.2); BASOPHILS 0.2 %; MCH 31.9 pg (26.0-34.0); MCHC 32.9 g/dL (28.0-37.0); MONOCYTES 2.5 %; MPV 9.3 fl. (7.2-11.1); NUCLEATED RBCS 0 /100WBC; PLATELET COUNT* 138 thou/uL (150-400); POLYS 92.3 %; RBC 2.01 mil/uL (4.20-5.00); RDW-CV 18.5 % (10.5-14.5); WBC 20.6 thou/uL (4.0-11.0)
[2019-11-01 09:18] LABS: CALCIUM 7.2 mg/dL (8.5-10.1); CREATININE 9.3 mg/dL (0.6-1.3); POTASSIUM 3.8 mmol/L (3.5-5.1)
[2019-11-01 09:22] LABS: HEMOGLOBIN 6.4 gm/dL (12.0-15.0)
[2019-11-01 09:23] LABS: HEMATOCRIT 19.5 % (37.0-47.0)
--- NOTE | 2019-11-01 18:42 | NUR ---
PATIENT TOLERATED TRANSFUSION WELL. MORE ALERT THIS PM. TAKING PO WELL. UNABLE TO MOVE INDEPENDENTLY. USING BED DUGAN TO VOID.
--- NOTE | 2019-11-01 19:47 | NUR ---
PATIENT BLADDER SCAN SHOWS 7ML UNABLE TO OBTAIN SPECIMEN. DR KEENE IN TO SEE PATIENT TO INCREASE EPO INJECTIONS AND CONTINUE TRANSFUSIONS
[2019-11-02] VITALS (10 sets, daily range): BP systolic 96–147; BP diastolic 51–83
[2019-11-02 01:41] LABS: INFLUENZA A ANTIGEN Positive (Negative); INFLUENZA B ANTIGEN Negative (Negative)
[2019-11-02 01:57] LABS: BE -7.1 mmol/L (-2 to +3); PCO2 27.9 mmHg (35.0-45.0); pH 7.399 (7.340-7.450)
[2019-11-02 02:03] LABS: PO2 132.5 mmHg (75.0-100.0)
[2019-11-02 03:37] LABS: MCH 31.1 pg (26.0-34.0); MCHC 32.9 g/dL (28.0-37.0); MCV 94.6 fL (80.0-100.0); MPV 9.4 fl. (7.2-11.1); RBC 2.22 mil/uL (4.20-5.00); RDW-CV 19.7 % (10.5-14.5); WBC 20.9 thou/uL (4.0-11.0)
[2019-11-02 03:48] LABS: INR 2.2; PROTIME 22.1 Seconds (9.20-11.50)
[2019-11-02 03:51] LABS: ALBUMIN 1.1 g/dL (3.4-5.0); CALCIUM 7.2 mg/dL (8.5-10.1); CREATININE 9.4 mg/dL (0.6-1.3); POTASSIUM 3.6 mmol/L (3.5-5.1); TOTAL BILIRUBIN 0.3 mg/dL (<0.1-1.0); TOTAL PROTEIN 5.9 g/dL (6.4-8.2)
[2019-11-02 03:55] LABS: HEMOGLOBIN 6.9 gm/dL (12.0-15.0)
--- NOTE | 2019-11-02 18:18 | NUR ---
PATIENT IN ISOLATION FOR FLU. MORE ALERT SLEEPING WITH BIPAP. TOLERATED TRANSFUSION WELL. PROGRESSWING
[2019-11-03] VITALS (17 sets, daily range): BP systolic 58–161; BP diastolic 31–103
[2019-11-03 02:10] LABS: HEPATITIS B SURFACE AG Negative (Negative)
[2019-11-03 05:17] LABS: HEMATOCRIT 20.1 % (37.0-47.0); MCHC 33.7 g/dL (28.0-37.0); MPV 9.5 fl. (7.2-11.1); RBC 2.12 mil/uL (4.20-5.00); RDW-CV 18.6 % (10.5-14.5); WBC 22.4 thou/uL (4.0-11.0)
[2019-11-03 05:27] LABS: CALCIUM 7.2 mg/dL (8.5-10.1); CREATININE 9.5 mg/dL (0.6-1.3); MAGNESIUM 1.9 mg/dL (1.8-2.4); POTASSIUM 3.8 mmol/L (3.5-5.1); TOTAL BILIRUBIN 0.3 mg/dL (<0.1-1.0); TOTAL PROTEIN 6.1 g/dL (6.4-8.2)
[2019-11-03 05:51] LABS: HEMOGLOBIN 6.8 gm/dL (12.0-15.0)
--- NOTE | 2019-11-03 08:37 | NUR ---
VSS. DENIED PAIN AND SOA THROUGH THE NIGHT. CRITICAL HGB 6.[address] KEENE THIS AM, ORDERS RECEIVED. CALL LIGHT WITHIN REACH.
--- NOTE | 2019-11-03 11:04 | NUR ---
CM UNABLE TO SEE PT. SLEEPING SOUNDLY AFTER AM CARES. NO FAMILY HERE. WILL ASSESS TOMORROW.
--- NOTE | 2019-11-03 12:35 | NUR ---
Nutrition: Consult received for Poor intake/appetite. Per RN, pt is eating better now. CHO controlled diet. Chart reviewed. Wt: 284#. No nutrtition interventions needed at this time. Mild risk.
[2019-11-03 13:03] LABS: HEMATOCRIT 20.7 % (37.0-47.0)
--- NOTE | 2019-11-03 16:16 | NUR ---
PT IS A/O X3 WITH FLAT AFFECT AND SLOW RESPONSE,PUSHER OPERATOR IN PLACE.PT REMAINS ON 4L O2 NC/BIPAP WHILE SLEEPING.NO C/O PAIN.BP SOFT IN THE 80s/50s to 90s/60s-PHYSICIANS AWARE.PT SCREENS SEPSIS POSITIVE-PHYSICIAN AWARE WITH NO NEW ORDERS RECIEVED.RIGHT FEMORAL CENTRAL LINE SECURE AND PATENT.PT RECEIVED TWO UNITS OF BLOOD THIS SHIFT.PT TOLERATED MEALS WELL.Q2 HOUR POSITION CHANGES.HOURLY ROUNDING COMPELTED FOR PT SAFETY.CALL LIGHT AND FALL PRECAUTIONS IN PLACE.PT DOWNGRADED TO TELEMETRY STATUS.REPORT CALLED TO СВЕТЛАНА ON TELE AND PT TRANSPORTED TO ROOM 221 WITH ALL PERSONAL BELONGINGS.
--- NOTE | 2019-11-03 16:27 | 2DMMODE ---
[place] [address] 2 D/M-MODE ECHOCARDIOGRAM Name: ROMELALEJANDRO Castillo Bo Room: [address] IN [facility]#: [id number] Admission: 11/01/19 Attend Phys: Charu Catherine, Discharge: Date of : 73 Date of Service: 11/03/19 1626 Report #: [id number] THIS REPORT FOR: cc: Linus Gay Bradley L. DO Blick, David R. MD [facility] ~ THIS REPORT FOR: //name// APPROVED REPORT Study performed: 11/03/2019 09:58:34 EXAM: Comprehensive 2D, Doppler, and color-flow Echocardiogram Patient Location: In-Patient Room #: 005 Status: routine BSA: 2.37 HR: 98 bpm BP: 93/45 mmHg Rhythm: NSR Other Information Technically limited study due to poor endocardial definition, body habitus. Indications Sepsis Elevated Troponin Echo Enhancing Agent Indication: Endocardial border delineation Agent(s) / Amount(s) Used: Optison 3 cc 2D Dimensions IVSd: 10.92 (7-11mm) LVOT Diam: 20.86 (18-24mm) LVDd: 50.19 mm PWd: 10.35 (7-11mm) Ascending Ao: 30.74 (22-36mm) LVDs: 39.88 (25-40mm) Aortic Root: 36.19 mm Aortic Valve AoV Peak Som.: 2.01 m/s AO Peak Gr.: 16.23 mmHg LVOT Max P.53 mmHg AO Mean Gr.: 8.95 mmHg LVOT [place]71 [place] [address] 2 D/M-MODE ECHOCARDIOGRAM Name: ALEJANDRO MORRIS Room: [address] IN ..#: [id number] Admission: 11/01/19 Attend Phys: Charu Catherine, Discharge: Date of : 73 Date of Service: 11/03/19 1626 Report #: [id number] LVOT Max V: 1.06 m/s AO V2 VTI: 24.84 cm LVOT Mean V: 0.78 m/s NAN (VTI): 2.01 cm2 LVOT V1 VTI: 14.63 cm Mitral Valve E/A Ratio: 1.36 MV Decel. Time: 215.48 ms MV E Max Som.: 0.77 m/s MV PHT: 62.49 ms MVA (PHT): 3.52 cm2 TDI E/Lateral E': 7.00 E/Medial E': 7.70 Medial E' Som.: 0.10 m/s Lateral E' Som.: 0.11 m/s Pulmonary Valve PV Peak Som.: 1.19 m/s PV Peak Gr.: 5.62 mmHg Left Ventricle The left ventricle is normal size. There is normal LV segmental wall motion. There is normal left ventricular wall thickness. Left ventricular systolic function is normal. The left ventricular ejection fraction is within the normal range. LVEF is 55-60%. Right Ventricle The right ventricle is normal size. The right ventricular systolic function is normal. Atria The left atrium size is normal. The right atrium size is normal. Aortic Valve Mild aortic valve sclerosis. Trace aortic regurgitation. There is no aortic valvular stenosis. Mitral Valve The mitral valve is normal in structure. Mild mitral annular calcification. There is no mitral valve regurgitation noted. No evidence of mitral valve stenosis. Tricuspid Valve The tricuspid valve is normal in structure. Unable to assess PA pressure. [place] [address] 2 D/M-MODE ECHOCARDIOGRAM Name: ALEJANDRO MORRIS Room: [address]#: [id number] Admission: 11/01/19 Attend Phys: Charu Catherine, Discharge: Date of : 73 Date of Service: 11/03/19 1626 Report #: [id number] Pulmonic Valve Pulmonic valve is not well visualized. There is no pulmonic valvular regurgitation. Great Vessels The aortic root is normal in size. IVC is normal in size and collapses >50% with inspiration. Pericardium There is no pericardial effusion. <Conclusion> LVEF is 55-60%. Mild aortic valve sclerosis. <ELECTRONICALLY SIGNED> By: Syd Luther MD, [facility] 11/03/19 1626 1626 1626 Syd Luther MD, FACC /INF
--- NOTE | 2019-11-03 17:14 | NUR ---
PATIENT ARRIVED FROM ICU THIS EVENING PER BED. PATIENT IS DROWSY AND LETHARGIC. PATIENT PLACED ON TELE MONITOR. TELE SHOWS SR TO ST. PATIENTS 02 SATS ARE 89 TP 95% ON 4 LITERS. BLOOD TRANSFUSION COMPLETED FROM ICU. PATIENT PLACED IN ISOLATION FOR FLU. CALL LIGHT IS IN REACH AND BED ALARM IS ON.
[2019-11-04 04:24] VITALS: BP 117/71
[2019-11-04 05:25] LABS: HEMOGLOBIN 7.6 gm/dL (12.0-15.0); MCH 31.1 pg (26.0-34.0); MCHC 34.3 g/dL (28.0-37.0); MCV 90.7 fL (80.0-100.0); MPV 9.5 fl. (7.2-11.1); RBC 2.43 mil/uL (4.20-5.00); RDW-CV 19.7 % (10.5-14.5); WBC 19.1 thou/uL (4.0-11.0)
[2019-11-04 05:33] LABS: INR 3.8; PROTIME 36.7 Seconds (9.20-11.50)
--- NOTE | 2019-11-04 05:36 | NUR ---
ASSUMED PT CARE AT APPROX 1930. PT IS SLEEPING BUT AROUSABLE, ORIENTED TO ELF, PLACE, TIME. VSS ON 5L OF O2/NC-NO DESATURATIONS NOTED. PERITONEAL DIALYSIS IN PROGRESS, PT IS TOLERATING DIALYSIS WELL. FX ARTIST IN PLACE, TRACING SR w/ 1D AVB. POSITION CHANGES DONE-PT REFUSES SOME TURNS, EDUCATION GIVEN. CALL LIGHT WITHIN REACH. HOURLY ROUNDING DONE FOR PT SAFETY.
[2019-11-04 06:13] LABS: ALBUMIN 0.9 g/dL (3.4-5.0); CALCIUM 7.4 mg/dL (8.5-10.1); CREATININE 9.5 mg/dL (0.6-1.3); MAGNESIUM 1.9 mg/dL (1.8-2.4); POTASSIUM 4.1 mmol/L (3.5-5.1); TOTAL BILIRUBIN 0.4 mg/dL (<0.1-1.0); TOTAL PROTEIN 5.6 g/dL (6.4-8.2)
[2019-11-04 08:51] VITALS: BP 114/62
--- NOTE | 2019-11-04 10:11 | NUR ---
ASSUMED CARE OF PT THIS AM AROUND 0715- TOPOGRAPHICAL ENGINEER IN PLACE ORDERED, TRACING SR- UPON ASSESSMENT PT NOTED TO BE LAYING IN BED- PT A&O X 3-4, FLAT AFFECT NOTED- INCONTINENT OF BOWEL THIS AM, ANURIA WITH PEROTNEAL DIALYSIS NOTED-BED REST IN PLACE WITH Q2 HOUR TURNS IN PLACE INDICATED- COURSE LUNGS SOUNDS NOTED, DYSPNEA NOTED ON EXERTION-VSS- ABD OBESE/FIRM/DISTENDED, BS X4 QUADS- LEFT MID ABD DIALYSIS PORT NOTED- RIGHT GROIN TRIPLE LUOMEN PICC NOTED C/D/I, SL- NON-WORKING FISTULA NOTED TO LUE- SIGNIFICANT BRUSING NOTED IN TRUNK/ABD AREA/JOEY THIGHS- SCATTRED BLISTERS NOTED TO BLE AND PANNUS, LARGE RUPTURED BLISTER NOTED TO LEFT HIP- WN CONSULTED FOR FURTHRE EVALUATION-FAIR PO INTAKE NOTED THIS AM WITH BLAKE VELOZ ORDERED- PRN TYLENOL GIVEN THIS AM AT 1004- CALL LIGHT AND PERSONAL BELONGINGS WITH IN REACH- HOURLY ROUNDS IN PLACE R/T SAFETY/NEEDS- ALL NEEDS MET AT THIS TIME-WCTM
--- NOTE | 2019-11-04 10:53 | CON ---
[address] [address] CONSULTATION Name: ALEJANDRO MORRIS Bo Room: [address] IN .R.#: [id number] Admission: 11/01/19 Attend Phys: Charu Catherine MD Discharge: Date of : 73 Report #: [id number] THIS REPORT FOR: //name// cc: Linus Gay Bradley L. DO THIS REPORT FOR: //name// CC: Linus Olson DATE OF SERVICE: 11/01/2019 CARDIOLOGY CONSULTATION HISTORY OF PRESENT ILLNESS: The patient is a 44-year-old obese white female who I was asked to see in the hospital today because of an abnormal troponin. The history is obtained from the patient, her spouse, and some old records. The patient denies previous history of heart disease. She does note that in 2011 she apparently was unresponsive for about a week and was admitted to [facility] and told she had a stroke. She has antiphospholipid antibodies and is chronically anticoagulated. She developed end-stage renal disease and has been on dialysis for the past 3 years. She eventually was on hemodialysis, but her fistula in the right arm occluded. She is now on peritoneal dialysis. She is not very active because of her large size. She does peritoneal dialysis about every day. She was last here to [place] in August with anemia. She was felt to have pneumonia. She eventually was discharged home. The patient was brought back to the Emergency Room yesterday evening feeling weak. She apparently had a fall. She had bruising on her legs. She did note some shortness of breath. She does have occasional chest pressure, although it is nonexertional. She denies any palpitations or loss of consciousness. PAST MEDICAL HISTORY: Otherwise, she has a history of hypertension and hyperlipidemia. She has had a hysterectomy and wrist surgery. MEDICATIONS: Include Colace, Epogen, Pepcid, lidocaine patch, aspirin, warfarin, Lipitor, clonidine, Lasix, Zoloft, bupropion, and losartan. ALLERGIES: She has no known drug allergies. FAMILY HISTORY: Father, heart disease. SOCIAL HISTORY: She is . She and her live in [place], [place]. Quit smoking 8 years ago. No alcohol abuse. REVIEW OF SYSTEMS: She apparently has had a previous stroke. She does have sleep apnea and does not use CPAP all the time. No history of liver disease. She has chronic renal failure. No cancer. No psychiatric illness. No chronic skin condition. PHYSICAL EXAMINATION: GENERAL: Revealed an obese and middle-aged female, lying in bed. She appeared in no distress. VITAL SIGNS: She had a blood pressure of 106/70 and pulse of 70. HEENT: She was anicteric. Conjunctivae pale. Mucous members appear dry. CHEST: Clear to auscultation. CARDIOVASCULAR: Regular rate and rhythm. ABDOMEN: Obese. EXTREMITIES: Had trace edema. SKIN: Warm and dry. NEUROLOGIC: Nonfocal. LABORATORY DATA: Her ECG on admission showed a sinus rhythm and nonspecific T-wave changes. Her workup was in the Emergency Room last night. She actually had an echocardiogram in 2016 that showed left ventricular hypertrophy, left atrium large, and her ejection fraction was felt to be 60%. She had a nuclear stress test in 2016 that showed ejection fraction of 72%. There is breast attenuation artifact resolved with prone imaging. Her x-rays last night, she had portable chest x-ray that showed cardiomegaly. Venous duplex scan yesterday because of edema showed no evidence of DVT. She had an MRI of the brain in August that showed previous infarction, volume loss, and small vessel changes. Her lab work last night; sodium 135, BUN 93, creatinine 9.3, SGOT 483, and SGPT 246. Her albumin is only 1.5. Troponin 0.66. BNP 21,666. In 2016, her LDL was 134. Her white blood cell count was 20,000, hemoglobin 6, and hematocrit is only 19.5. IMPRESSION AND RECOMMENDATIONS: 1. Non-myocardial infarction related to borderline elevation of troponin. Recommend no further cardiac evaluation. No symptoms of angina. Since the patient is on warfarin, I would consider discontinuing aspirin. 2. Previous stroke. 3. Antiphospholipid syndrome. The patient is on warfarin. Her INR last night was 2.0. 4. Hypertension. The patient is on an ARB and clonidine. 5. Hyperlipidemia. The patient is on a statin drug. 6. Morbid obesity. 7. Sleep apnea. The patient does not use CPAP. 8. Elevated liver function studies. 9. Renal failure. The patient is on dialysis. 10. Previous tobacco abuse. <ELECTRONICALLY SIGNED> By: Syd Luther MD, FACC 11/04/19 1053 1042 [id number] Luther MD, FACC /nt
[2019-11-04 11:38] VITALS: BP 107/54
[2019-11-04 13:36] LABS: BE -4.6 mmol/L (-2 to +3); PCO2 32.9 mmHg (35.0-45.0); pH 7.393 (7.340-7.450)
[2019-11-04 13:39] LABS: PO2 58.5 mmHg (75.0-100.0)
--- NOTE | 2019-11-04 15:40 | NUR ---
Pt is A&O. Resides at home with her . assists as needed. Pt states that she has a cpap, but states that [facility] "stopped sending me supplies," CM to contact [facility]. No home o2. Hx of HH. Hx of SNF. Hx of [facility]. Spoke with Dr el burt in a few days. Pt unsure if she will be able to return home vs skilled, nurse to order therapies. Pt does home PD, unsure of which facilities allow PD. Following.
[2019-11-04 18:38] VITALS: BP 136/61
[2019-11-04 20:00] VITALS: BP 123/60
[2019-11-05 00:30] VITALS: BP 123/69
[2019-11-05 05:02] VITALS: BP 121/55
[2019-11-05 05:39] LABS: HEMATOCRIT 20.8 % (37.0-47.0); MCH 31.4 pg (26.0-34.0); MCHC 33.9 g/dL (28.0-37.0); MCV 92.6 fL (80.0-100.0); MPV 9.7 fl. (7.2-11.1); RBC 2.25 mil/uL (4.20-5.00); RDW-CV 20.1 % (10.5-14.5); WBC 17.7 thou/uL (4.0-11.0)
[2019-11-05 05:51] LABS: INR 3.6; PROTIME 35.5 Seconds (9.20-11.50)
[2019-11-05 06:03] LABS: ALBUMIN 0.8 g/dL (3.4-5.0); CREATININE 9.5 mg/dL (0.6-1.3); POTASSIUM 3.9 mmol/L (3.5-5.1); TOTAL BILIRUBIN 0.4 mg/dL (<0.1-1.0); TOTAL PROTEIN 5.6 g/dL (6.4-8.2)
--- NOTE | 2019-11-05 06:38 | NUR ---
ASSUMED PT CARE AT APPROX 1930. PT IS LETHARGIC BUT AROUSABLE, ABLE TO ANSWER SIMPLE QUESTIONS, FOLLOW SIMPLE COMMANDS. INVESTMENT OFFICER IN PLACE-TRACING SR. VSS ON 3L OF O2/NC, NO DESATURATIONS NOTED. PERITONEAL DIALYSIS IN PROGRESS-PT IS TOLERATING DIALYSIS WELL. POSITION CHANGES DONE Q2HRS. HIGH FALL PRECAUTIONS IN PLACE. CALL LIGHT WITHIN REACH. PT IS CLOSELY MONITORED.
--- NOTE | 2019-11-05 07:15 | NUR ---
CHANGE OF SHIFT, BEDSIDE REPORT GIVEN PATIENT SEEN AT BEDSIDE, IN BED ASLEEP
[2019-11-05 11:44] VITALS: BP 135/67
--- NOTE | 2019-11-05 14:05 | NUR ---
WOUND NURSE: PATIENT SEEN TO ADDRESS MULTIPLE BULLAE WITH ECCHYMOSIS AND BLACKENED ESCHARS IN ABDOMINAL FOLD; BILATERAL HIPS AND LEGS. PRESENTS DESCRIBED 2ND TO COMPLICATIONS ASSOCIATED WITH DIC. LEFT HIP WITH RUPTURED BULLA MEASURING 15 X 16 CM AND CONTAINS BLACKENED ESCHAR ALONG WITH ECCHYMOSIS. THERE IS ALSO INDURATION TO MEDIAL THIGH LESION. THERE IS ALSO NECROTIC ODOR ASSOCIATED WITH THESE LESIONS WHICH IMPROVED SIGNIFICANTLY WITH WOUND CLEANSING. THERE IS MODERATE TO LARGE AMOUNTS OF SEROUSANGUINOUS DRAINAGE NOTED. PATIENT WAS MOVED TO A BED WITH A LOW AIRLOSS MATTRESS, THEN THOROUGHLY BATHED FROM HEAD TO TOE. APPIED SILVADENE CREAM TO ALL OPEN LESIONS. PATIENT IS NOT TEACHABLE AT THIS TIME.
[2019-11-05 16:00] VITALS: BP 102/63
[2019-11-05 20:00] VITALS: BP 128/79
[2019-11-06 00:37] VITALS: BP 116/60
[2019-11-06 03:08] LABS: IgA 265 mg/dL (87-352); IgG 634 mg/dL (700-1600); IgM 43 mg/dL (26-217)
[2019-11-06 04:00] VITALS: BP 128/71
[2019-11-06 04:37] LABS: HEMATOCRIT 21.4 % (37.0-47.0); HEMOGLOBIN 7.2 gm/dL (12.0-15.0); MCH 31.2 pg (26.0-34.0); MCHC 33.7 g/dL (28.0-37.0); MCV 92.6 fL (80.0-100.0); MPV 9.4 fl. (7.2-11.1); RBC 2.31 mil/uL (4.20-5.00); RDW-CV 19.8 % (10.5-14.5)
[2019-11-06 05:00] LABS: CALCIUM 7.3 mg/dL (8.5-10.1); CREATININE 9.5 mg/dL (0.6-1.3); MAGNESIUM 2.1 mg/dL (1.8-2.4); PHOSPHORUS* 7.5 mg/dL (2.5-4.9); POTASSIUM 3.9 mmol/L (3.5-5.1)
--- NOTE | 2019-11-06 05:29 | NUR ---
ASSUMED PT CARE AT APPROX 1930. PT IS SLEEPING BUT AROUSABLE, ORIENTED TO SELF, PLACE, TIME. VSS ON 3L OF O2/NC-NO DESATURATIONS NOTED. PERITONEAL DIALYSIS IN PROGRESS, PT IS TOLERATING DIALYSIS WELL. BOBBIN CLEANER IN PLACE, TRACING SR w/ 1D AVB. POSITION CHANGES DONE.PT REFUSES TO KEEP BIPAP ON, EDUCATION GIVEN. RT AWARE. HIGH FALL PRECAUTIONS IN PLACE. CALL LIGHT WITHIN REACH. PT IS KEPT CLOSELY MONITORED.
[2019-11-06 06:27] LABS: INR 3.7; PROTIME 36.1 Seconds (9.20-11.50)
[2019-11-06 07:45] VITALS: BP 126/65
--- NOTE | 2019-11-06 11:00 | NUR ---
Transfer initiated to burn center, CM contacted transfer team and faxed requested info [phone]. Awaiting decision to accept. CM started EMTALA and ambulance form, to be completed once acceptance is received.
--- NOTE | 2019-11-06 12:43 | CON ---
[address] [address] CONSULTATION Name: ALEJANDRO MORRIS Room: [address] IN .R.#: [id number] Admission: 11/01/19 Attend Phys: Charu Catherine MD Discharge: Date of : 73 Report #: [id number] THIS REPORT FOR: //name// cc: Linus Gay Bradley L. DO ~ THIS REPORT FOR: //name// CC: Linus Catherine DATE OF SERVICE: 11/05/2019 INFECTIOUS DISEASE CONSULTATION ATTENDING PHYSICIAN: Dr. Catherine. REASON FOR EVALUATION: Influenza A, complicated by secondary infection, likely bacterial including pneumonitis. HISTORY OF PRESENT ILLNESS: Chart reviewed, patient examined. This is a 44-year-old woman with a history of antiphospholipid antibody syndrome, who is on anticoagulation due to a hypercoagulable state, who presented with generalized weakness for 2 weeks, multiple bruises noted including some associated with superficial hemorrhagic bullae associated with severe pain, in particular proximal lower extremities, upper chest and proximal upper extremities. She has at least moderate encephalopathy. She is confirmed to have positive influenza A antigen. Additional evaluation included chest x-ray, which showed infiltrates. Blood cultures are sterile thus far, suspected as having secondary bacterial pneumonitis, empirically started on ceftriaxone in addition to one dose of Tamiflu. She is at least moderately encephalopathic, does admit to pain associated with the contused areas. ALLERGIES: None known. MEDICATIONS: Include ceftriaxone, bupropion, fish oil, clonidine, famotidine, atorvastatin, sertraline, levalbuterol, sevelamer. PAST MEDICAL HISTORY: As noted above, antiphospholipid antibody syndrome with hypercoagulable state, history of strokes x 2, hypertension, end-stage renal disease, on peritoneal dialysis. SOCIAL HISTORY: Former smoker, occasional ethanol, past marijuana use. FAMILY HISTORY: Noncontributory. REVIEW OF SYSTEMS: Not reliably obtained. PHYSICAL EXAMINATION: GENERAL: She appears chronically ill, undernourished. She has altered mental status, does arouse briefly, opens her eyes, seems to track me only briefly, appears to be in moderate distress. She is pale, although obese, appears undernourished. She is on supplemental oxygen per nasal cannula. VITAL SIGNS: Temperature 98.4, T-max last evening 100.2, pulse 91, respirations 22, blood pressure 102/63. SKIN: Warm, dry, no rashes. HEENT: Normocephalic. Extraocular muscles appear to be intact. NECK: Supple. LUNGS: Scattered coarse breath sounds bilaterally. HEART: Borderline tachycardic, regular. I do not appreciate murmur. ABDOMEN: Generally soft. There are no apparent peritoneal signs. SKIN: She has multiple areas that are contused, seemingly some are related to needle sticks. Does have proximal lower extremities with bullous lesions associated with at least 2 of them that are quite tender to palpation. GENITOURINARY: Deferred. RECTAL: Deferred. LABORATORY DATA: Sed rate of greater than 140. Sodium 134, potassium 3.9, chloride 93, bicarbonate is 22, anion gap of 19, BUN and creatinine 19 and 9.5 consistent with her end-stage renal disease. Glucose 118. AST is 147; ALT of 140, actually decreased from admission; total bilirubin of 0.4; albumin of 0.8, total protein of 5.6. Estimated GFR of 4. CBC: White count of 17.7, that is actually down as well from 20.9 on admission; hemoglobin 6.9; hematocrit 21.0; platelets of 105. Additionally, H and H 7.0 and 20.8 this morning, platelet count of 72. ABGs: The pH 7.393, pCO2 of 32.9, pO2 of 58.5 on 2 L nasal cannula. She is known for an echo with valvular abnormalities, EF of 55-60%. Haptoglobin elevated at 540. Positive influenza A antigen. ASSESSMENT: Influenza A. The patient certainly is at risk for both infectious and noninfectious complications. Certainly can exclude pneumonitis. She is not a good historian. We will continue therapy with the ceftriaxone. This should impact her underlying illness. We will have to monitor expectantly. I do not think her liver disease is remarkable. I think it is probably secondary to the viral etiology, perhaps a degree of hypotension leading to some organ dysfunction. We will monitor expectantly. Certainly at risk for additional coagulopathy including bleeding. Prognosis appears guarded. Thank you. We will follow. <ELECTRONICALLY SIGNED> By: Armando Daley MD 11/06/19 1243 1747 [id number] maria Daley MD /nt
[2019-11-06 13:23] VITALS: BP 124/40
[2019-11-06 15:57] VITALS: BP 106/58
--- NOTE | 2019-11-06 16:52 | NUR ---
I have reviewed the documentation by YARY PAREDES from 11/26/19 to 11/06/19 and I concur with it. LINDSEY JARQUIN
--- NOTE | 2019-11-06 18:25 | NUR ---
PATIENT SOMEWHAT PROGRESSING WELL TOWARDS GOALS. WOUNDS ARE MULTIPLYING WITH BLISTERS AND THEN OPENING. SILVERDENE APPLIED TO WOUNDS ORDERED AND RECOMMENDED BY WOUND CARE. PATIENT ASKING FOR BEDPAN FREQUENTLY. DOES PASS SOME STOOL BUT SMALL. PATIENT URINATED END OF SHIFT BUT WAS AN INCONTINENT EPISODE, UNABLE TO COLLECT SPECIMEN TO SEND TO LAB FOR UA. NO PAIN, NAUSEA OR SHORTNESS OF AIR AT THIS TIME. BED IN LOWEST POSITION, CALL LIGHT IN REACH, MANAGER COUNTRY IN PLACE. HIGH FALL PREACUTIONS IN PLACE.
[2019-11-06 20:15] VITALS: BP 133/80
[2019-11-07] VITALS: BP 119/74
--- NOTE | 2019-11-07 03:37 | NUR ---
ASSUMED CARE OF PT AT 1900. PT IS ALERT AND ORIENTED. VSS. PERRLA. NO COMPLAINTS OF PAIN. PT HAS FLAT AFFECT AND APPEARS WITHDRAWN. PT HAD BOWEL MOVEMENT LAST NIGHT. PT IS A Q2 TURN. SILVADINE PLACED ON WOUNDS. PT IS IN SINUS RYTHM ON THE TELEMETRY. PT IS RESTING COMFORTABLY IN BED. RESPIRATIONS ARE EVEN AND NONLABORED. WILL CONTINUE TO MONITOR PT.
[2019-11-07 04:05] VITALS: BP 91/65
[2019-11-07 05:04] LABS: INR 3.6; PROTIME 35.2 Seconds (9.20-11.50)
[2019-11-07 05:06] LABS: CALCIUM 6.9 mg/dL (8.5-10.1); CREATININE 9.4 mg/dL (0.6-1.3); POTASSIUM 4.3 mmol/L (3.5-5.1)
--- NOTE | 2019-11-07 07:15 | NUR ---
CHANGE OF SHIFT BEDSIDE REPORT GIVEN PATIENT SEEN AT BEDSIDE, IN BED RESTING ASSUMMED PATIENT CARE
[2019-11-07 08:00] VITALS: BP 105/61
--- NOTE | 2019-11-07 08:36 | CON ---
[address] [address] CONSULTATION Name: ALEJANDRO MORRIS Room: [address] IN .R.#: [id number] Admission: 11/01/19 Attend Phys: Charu Catherine MD Discharge: Date of : 73 Report #: [id number] THIS REPORT FOR: //name// cc: Linus Gay Bradley L. DO ~ THIS REPORT FOR: //name// CC: Linus Catherine DATE OF SERVICE: 11/01/2019 NEPHROLOGY CONSULTATION CONSULTING PHYSICIAN: Magalys Sherman MD. REASON FOR NEPHROLOGY CONSULTATION: End-stage renal disease, on maintenance peritoneal dialysis. REASON FOR ADMISSION: The patient was having some generalized weakness and swelling in her legs. HISTORY OF PRESENT ILLNESS: This is a 44-year-old female with past medical history of end-stage renal disease, on peritoneal dialysis, came in because of bilateral leg pain and leg swelling and weakness and bruises all over. She also reports that several members of her family were suffering from flu. She is in the ICU. She has a white count of 20,000. She is being empirically treated for sepsis. She did not get her peritoneal dialysis last night. The patient is currently in the ICU. She is oriented to place, not oriented to time. She is oriented to person. She is on 4 liters of oxygen by nasal cannula. ALLERGIES: No known allergies. REVIEW OF SYSTEMS: Limited because she is lethargic. PAST MEDICAL AND SURGICAL HISTORY: Includes hypertension; CVA x 2; antiphospholipid antibody syndrome; 2 C-sections; full hysterectomy; fistula in 2016; end-stage renal disease, on peritoneal dialysis, peritoneal dialysis catheter intact; left wrist surgery. CURRENT MEDICATIONS: At home include senna, cefdinir, Epogen, famotidine, lidocaine, aspirin, warfarin, atorvastatin, clonidine, furosemide, sertraline, docosahexaenoic acid, sevelamer, bupropion, lactulose, losartan. FAMILY HISTORY: Unable to review with the patient. SOCIAL HISTORY: Has used alcohol in the past. Tobacco use not reported. No recreational drug use. PHYSICAL EXAMINATION: VITAL SIGNS: Her blood pressure is 122/59, pulse rate was 93, respiratory rate was 24, and her pulse ox is 94% on 4 liters of oxygen by nasal cannula. GENERAL: She is currently quite lethargic. She knew where she is and she knew who is the president. HEAD AND EYES: Atraumatic, normocephalic and normal conjunctivae. EARS, NOSE, AND THROAT: Normal ears and nose. Mucous membranes are moist. NECK: No JVD. CHEST: Bilaterally diminished breath sounds bilaterally anteriorly. No wheezing. CARDIOVASCULAR: S1, S2 normal. No murmurs heard. ABDOMEN: Obese, otherwise soft, nondistended. PD catheter intact in left lower quadrant and PD exit site looks good. LOWER EXTREMITIES: 2+ edema bilateral lower extremities. NEUROLOGICAL FUNCTION: She is lethargic. PSYCHIATRIC: Not able to assess right now. LABORATORY DATA: Her sodium was 136, potassium was 3.9, BUN was 83. White count was 20,000, hemoglobin was 7.0. IMAGING: Venous Doppler study and chest x-ray were reviewed. ASSESSMENT: 1. End-stage renal disease, on peritoneal dialysis. 2. Leukocytosis presented with weakness, sepsis, primary team is treating with antibiotics. 3. Anemia of chronic kidney disease. 4. Lower extremity weakness. We will defer to primary team for management of that. The patient presented with similar symptoms recently. 5. Secondary hyperparathyroidism. 6. Elevated transaminases. 7. Elevated troponin. We will defer to primary team. PLAN: 1. We will continue peritoneal dialysis on her cycler using 2.5% dextrose solution, 2500 mL of dwell volume, 5 exchanges overnight over 11 hours starting tonight. 2. Epogen for anemia will be ordered. 3. Continue her binders when she is able to swallow. Thank you for this consultation. We will continue to follow for dialysis needs. Discussed with the patient's nurse. <ELECTRONICALLY SIGNED> By: Louisa Mejía MD 11/07/19 0836 0821 [id number] Mejía MD /nt
--- NOTE | 2019-11-07 10:20 | NUR ---
CALLED [facility] TRANSFER TEAM RE TRANSFER TO BURN UNIT AT [facility]. THEY WILL CHECK BED AVAILABILITY,REVIEW CHART AND UPDATE CM THIS AFTERNOON
[2019-11-07 11:59] LABS: MCH 30.7 pg (26.0-34.0); MCHC 32.6 g/dL (28.0-37.0); MCV 94.2 fL (80.0-100.0); MPV 9.6 fl. (7.2-11.1); NUCLEATED RBCS 0 /100WBC; PLATELET COUNT* 75 thou/uL (150-400); RBC 2.23 mil/uL (4.20-5.00); RDW-CV 20.4 % (10.5-14.5); WBC 13.7 thou/uL (4.0-11.0)
[2019-11-07 12:05] LABS: HEMOGLOBIN 6.8 gm/dL (12.0-15.0)
[2019-11-07 12:06] VITALS: BP 114/61
[2019-11-07 12:49] LABS: ABSOLUTE EOSINOPHILS 0.1 thou/uL (0.0-0.7); ABSOLUTE MONOCYTES 0.1 thou/uL (0.0-1.2); ABSOLUTE NEUTROPHILS 12.5 thou/uL (1.6-8.1); ANISOCYTOSIS 2+; ATYPICAL LYMPHS 1 %; METAMYELOCYTES 1 %; PLATELET ESTIMATE ADEQUATE
--- NOTE | 2019-11-07 14:31 | NUR ---
PT ACCEPTED AT [facility] BURN [facility]IT. TRANSFER PAPERWORK FAXED TO [facility]. EMTALA PAPERWORK FILE OUT. DR ORELLANA AND DR PAL NOTIFIED. PT NOTIFIED
--- NOTE | 2019-11-07 15:33 | NUR ---
PATIENT TRANSFERRED TO [facility] REPORT GIVEN TO [facility] PATEL PATIENTS NOTIFIED AND PERSJEANE BELONGINGS SENT CHART COPIED AND SENT
[2019-11-09 18:07] LABS: HEMOGLOBIN 6.7 g/dL (11.1-15.9)
== END 2019-11-07 15:30 | disposition short-term general hospital (02) | DRG 871 ==
LOC: M.ERS 18:51 → M.TBA-ER 11-01 00:18 → M.ICU 11-01 00:18 → M.2W 11-03 16:10
PROVIDERS: Emergency Medicine Emergency Medical Services; Internal Medicine; Internal Medicine Nephrology; Personal Emergency Response Attendant; ADMIT Internal Medicine
PROC: 5A09357 Assistance with Respiratory Ventilation, Less than 24 Consecutive Hours, Continuous Positive Airway Pressure (ICD-10-PCS; principal; 2019-11-01)
PROC: 06HY33Z Insertion of Infusion Device into Lower Vein, Percutaneous Approach (ICD-10-PCS; principal; 2019-11-01)
PROC: 30233N1 Transfusion of Nonautologous Red Blood Cells into Peripheral Vein, Percutaneous Approach (ICD-10-PCS; principal; 2019-11-01)
PROC: B54CZZA Ultrasonography of Left Lower Extremity Veins, Guidance (ICD-10-PCS; principal; 2019-11-01)
PROC: 5A09357 Assistance with Respiratory Ventilation, Less than 24 Consecutive Hours, Continuous Positive Airway Pressure (ICD-10-PCS; 2019-11-02)
PROC: 5A09357 Assistance with Respiratory Ventilation, Less than 24 Consecutive Hours, Continuous Positive Airway Pressure (ICD-10-PCS; 2019-11-03)
PROC: 5A09357 Assistance with Respiratory Ventilation, Less than 24 Consecutive Hours, Continuous Positive Airway Pressure (ICD-10-PCS; 2019-11-04)
PROC: 5A09357 Assistance with Respiratory Ventilation, Less than 24 Consecutive Hours, Continuous Positive Airway Pressure (ICD-10-PCS; 2019-11-05)
DX: A41.9 Sepsis, unspecified organism (principal); N18.6 End stage renal disease; D65 Disseminated intravascular coagulation [defibrination syndrome]; I21.4 Non-ST elevation (NSTEMI) myocardial infarction; J10.00 Influenza due to other identified influenza virus with unspecified type of pneumonia; I12.0 Hypertensive chronic kidney disease with stage 5 chronic kidney disease or end stage renal disease; E87.2 Acidosis; Z68.42 Body mass index [BMI] 45.0-49.9, adult; D68.59 Other primary thrombophilia; N25.81 Secondary hyperparathyroidism of renal origin; Z99.2 Dependence on renal dialysis; D63.8 Anemia in other chronic diseases classified elsewhere; E21.3 Hyperparathyroidism, unspecified; R74.0 Nonspecific elevation of levels of transaminase and lactic acid dehydrogenase [LDH]; E78.5 Hyperlipidemia, unspecified; E66.01 Morbid (severe) obesity due to excess calories; E66.9 Obesity, unspecified; R79.89 Other specified abnormal findings of blood chemistry; F32.9 Major depressive disorder, single episode, unspecified; R58 Hemorrhage, not elsewhere classified; L13.9 Bullous disorder, unspecified; Z82.49 Family history of ischemic heart disease and other diseases of the circulatory system; Z86.73 Personal history of transient ischemic attack (TIA), and cerebral infarction without residual deficits; Z90.710 Acquired absence of both cervix and uterus; Z79.2 Long term (current) use of antibiotics; Z79.01 Long term (current) use of anticoagulants; Z79.82 Long term (current) use of aspirin; Z87.891 Personal history of nicotine dependence; Z79.899 Other long term (current) drug therapy; D63.1 Anemia in chronic kidney disease; E11.22 Type 2 diabetes mellitus with diabetic chronic kidney disease